=== PATIENT | male | born 1955 | race Caucasian/White ===

== ENCOUNTER 2023-11-15 14:26 | Inpatient (IN) ==
--- OUTSIDE RECORDS SUMMARY | 2023-11-15 14:32 | External Medical Summary | Continuity of Care Document ---
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 Fatigue (LNV24-ZB R53.83, Discharge, Medical). Constipation (JYX60-FQ K59.00, Discharge, Medical). 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 Arm numbness (FMM92-JF R20.0, Discharge, Medical). Plan: Arm Numbness (not at goal) Bilaterally symptoms question this is related to a cervical radiculopathy Check cervical spine x-ray Consider return to sports medicine for workup He has some travel upcoming, so would not be until mid-to-late October that he would be able to see Fatigue (not at goal) Difficult to tell if this is pathologic or just physiologic and age-related About 4 years ago, we had checked his testosterone and it was low normal range Recheck testosterone Check CBC Check TSH Constipation (not at goal) No culprit medicines except for perhaps beta-jeff Discussed gradual introduction of fiber Check TSH Coronary artery disease Cardiomyopathy Hyperlipidemia (at goal) At goal Continue lovastatin and co-Q10 On Entresto, preserved renal function and serum potassium noted Hypertension (at goal) At goal Relative bradycardia, but no evidence of orthostatic symptoms . Orders [facility] Radiology: XR Spine Cervical 2 or 3 Views (Order): *Est. 10/02/2023, Routine, bilateral arm numbness, Arm numbness, Exam to be performed outside organization?, Order for future visit, [facility]. [facility] Laboratory: TSH Request (Order): Routine, 10/02/2023 10:47 EDT, Requested Timeframe First Available CBC w Platelets and Diff Request (Order): Routine, 10/02/2023 10:47 EDT, Requested Timeframe First Available Total Testosterone, LC-MS/MS Request (Order): Routine, 10/02/2023 10:47 EDT, Requested Timeframe First Available. [facility] Patient Care Ambulatory: Follow Up Appointment Ambulatory (Order): In 6 Months, Appointment Type Patient Preference, 40, 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 Immunizations Given and Recorded Vaccine Date Status Refusal Reason pneumococcal 20-valent conjugate vaccine 03/27/22 Given zoster vaccine, inactivated 03/27/22 Given SARS-CoV-2 mRNA-1273 (6y+ bivalent) 1 02/10/22 Rec orded SARS-CoV-2 mRNA (tozinameran 5y-11y) 2 07/18/21 Re corded influenza virus vaccine, inactivated 01/23/21 Give n influenza virus vaccine, inactivated 12/21/19 Give n influenza virus vaccine, inactivated 01/06/19 Give n influenza virus vaccine, inactivated 03/19/16 Give n influenza virus vaccine, inactivated 03/22/15 Give n influenza virus vaccine, inactivated 01/30/14 Give n influenza virus vaccine, inactivated 02/02/13 Give n SARS-CoV-2 (COVID-19) mRNA BNT-162b2 vax 3 05/28/20 Recorded SARS-CoV-2 (COVID-19) mRNA BNT-162b2 vax 4 05/07/20 Recorded SARS-CoV-2 (COVID-19) mRNA-1273 vaccine 5 05/25/20 Recorded pneumococcal 23-valent vaccine 03/18/18 Given zoster vaccine live 09/19/15 Given tetanus/diphtheria/pertuss, acel (Tdap) 10/20/11 G iven 1Result Comment: 2022-03-27: Historical information-source unspecified 2Result Comment: [facility] 3Result Comment: 2021-01-23: Historical information-source unspecified 4Result Comment: 2021-01-23: Historical information-source unspecified 5Result Comment: 2021-01-23: Historical information-source unspecified Medications carvedilol 6.25 mg oral tablet Start: 08/18/23 9:12:00 AM EDT, 1 tab, PO, bid, Disp# 180 tab, Refills: 3, Pharmacy: [id number] Start Date: 08/18/23 Status: Ordered Entresto 49 mg-51 mg oral tablet Start: 12/02/22 3:45:00 PM EDT, 1 tab, PO, bid, Disp# 180 tab, Refills: 3, Pharmacy: [id number] Start Date: 12/02/22 Status: Ordered multivitamin Start: 10/01/22 12:45:00 PM EDT, 1 tab, PO, Daily Start Date: 10/01/22 Status: Ordered pravastatin 20 mg oral tablet Start: 05/08/23 10:54:00 AM EST, 1 tab, PO, qhs, Disp# 90 tab, Refills: 3, Pharmacy: [id number] Start Date: 05/08/23 Status: Ordered traMADol 50 mg oral tablet Start: 07/27/23 3:07:00 PM EDT, See Instructions, Disp# 45 tab, Refills: 3, TAKE 1 TABLET BY MOUTH EVERY 8 HOURS NEEDED FOR PAIN, Pharmacy: [id number] Start Date: 07/27/23 Status: Ordered Tylenol Arthritis Caplet Start: 05/05/19 9:50:00 AM EST, 1,300 mg =, PO, q8h, PRN: pain Start Date: 05/05/19 Status: Ordered Vitamin D3 Start: 08/20/16 9:40:00 AM EDT, 2,000 Int_Unit =, PO, Daily Start Date: 08/20/16 Status: Ordered Mental Status 10/02/23 Barriers to Learning one year None evide nt Mandatory Health Literacy Documentation Yes Health Literacy Communication Barriers N ever Primary Language Bahraini Problem List Condition Confirmation Course Effective Dates Status H ealth Status Informant Cardiomyopathy Confirmed Active Chronic low back pain Confirmed Active 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 Confirmed Active Right foot drop Confirmed Active History of compression fracture of spine Confirmed Active Right hand pain Confirmed Active Status post insertion of drug-eluting stent into left anterior descending artery for coronary artery disease Confirmed Active History of total right hip arthroplasty Confirmed Active Hypertension Confirmed Active IMPOTENCE OF ORGANIC ORIGIN Confirmed Active Muscle weakness of right arm Confirmed Active Right arm weakness Confirmed Active Neurogenic amyotrophy Confirmed Active Medicare annual wellness visit, subsequent Confirmed Active Colon polyp, hyperplastic Confirmed Active Emphysema lung Confirmed Active Need for Tdap vaccination Confirmed Active Need for pneumococcal vaccine Confirmed Active Need for shingles vaccine Confirmed Active Foraminal stenosis of lumbar region Confirmed Active Systolic CHF Confirmed Active History of prior cigarette smoking Confirmed Active Right leg weakness Confirmed Active Weight disorder Confirmed Active Diagnosis Diagnosis Type Effective Dates Health Status Clinical Service Informant Body mass index [BMI] 29.0-29.9, adult Discharge Diagnosis 10/02/23 Non-Specified Arm numbness Discharge Diagnosis 10/02/23 Non-Specified Right hand pain Discharge Diagnosis 10/02/23 Non-Specified 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 Discharge Diagnosis 10/02/23 Non-Specified Fatigue Discharge Diagnosis 10/02/23 Non-Specified Constipation Discharge Diagnosis 10/02/23 Non-Specified Procedures Procedure Date Related Diagnosis Body Site Status CT of lungs 1 04/07/22 Completed Chest X-ray 2 04/18/19 Completed X-ray of both knees 3 02/07/19 Com pleted MRI of right shoulder 4 11/25/18 C ompleted Shoulder X-ray 5 11/01/18 Complete d Lumbar spinal fusion 03/16/18 Comp leted MRI of lumbar spine 6 11/06/17 Com pleted Cardiac catheterization 7 08/22/17 Completed Chest X-ray/KUB 8 08/14/17 Complet ed Colonoscopy 9 03/15/14 Completed Cardiac catheter & angioplasty 10 Completed deviated septum repain Co mpleted right hip replacement Com pleted 1Impression: 1. Mild emphysema without acute intrathoracic abnormality 2. Low suspicion pulmonary nodules 2No active disease in the chest. 3Negative study 4IMPRESSION: Very subtle nonspecific spraspinatus muscle edema Mild degenreative chnge No evidence of ratator tear. Normal bicipital tendon. 5IMPRESSION: No acute fracture. Mild to moderat right shoulder osteoarthritis 6Chronic pars defects at L5 with 9mm anterolisthesis L5 on S1. These findings in addition to ligamentum flavum thickening, advanced facet arthrosis and small posterior disc bulge causes mild central canal and severe bilateral foraminal stenosis. Mild central canal stenosis at L2-L3 and L3-L4. Advanced multilevel facet arthropathy with multilevel foraminal stenosis as above. Remote compression deformity of L1 vertebral body. No acute fracture or focal bone marrow edema. 7IMPRESSION: 1. Mildly elevated right heart pressures, mild aortic hypoxemia. 2. Known left ventricular systolic dysfunction. No ventriculogram performed. 3. Significant stenosis of the mid left anterior descending artery. Successful angioplasty, drug-eluting stent placement. 81. Nonobstructive bowel gas pattern without pneumoperitoneum. 2. No definite evidence of constipation. 3. No acute process of the chest. 9Repeat colonoscopy in 10 years Impression: Diverticulosis in the sigmoid colon One 7mm polyp at the recto-sigmoid colon resected and retrieved Final pathologic diagnosis: Colon, rectosigmoid, polypectomy: Hyperplastic polyp 101. Mildly elevated right heart pressures, mild aortic hypoxemia. 2. Known left ventricular systolic dysfunction. No ventriculogram performed. 3. Significant stenosis of the mid left anterior descending artery. Successful angioplasty, drug-eluting stent placement. Vital Signs Most recent to oldest [Reference Range]: 1 Height 179.5 cm (10/02/23 10:04 AM) Patient Weight 95.3 kg (10/02/23 10:04 AM) Body Mass Index 29.58 kg/m2 (10/02/23 10:04 AM) Heart Rate 73 bpm (10/02/23 10:04 AM) Respiratory Rate 18 br/min (10/02/23 10:04 AM) Blood Pressure 138/80mmHg (10/02/23 10:04 AM) Cuff Pulse Pressure 58 mmHg (10/02/23 10:04 AM) Social History Social History Type Response Tobacco Former smoker, Cigar ettes, 1 per day. 40 year(s). Started age 22 Years. Stopped age 62 Years. Smoking Status Former Smoker, quit > 1 yr Sex Sex Representation Male (finding) Outpatient Note * DO Serrano Franklin J: PERFORM, MODIFY, MODIFY, SIGN, VERIFY Event Display: .Outpt Note Authored Date: Patient: PETER TORREZ Age: 67 years Sex: Male : 1955 Associated Diagnoses: None Author: DO Serrano Franklin J Visit Information Visit type: Scheduled follow-up. Chief Complaint 10/02/2023 10:00 EDT 6 month f/u. Almost constant numbness in arms just when going to bed when sleeping on sides- waking from sleep because of it. Wondering if any meds could be causing constipation. Increased sweating. Heart palpitations when it was hot out. History of Present Illness Since I saw him last, broke her hip in April. Most bothersome thing for him (and limiting sleep) is arm numbness/pins and needles. Has been ongoing for a while, but is now every night. Sometimes it is lower arm, sometimes entire arm. In looking in the records, actually looks like it dates back to 2018 at which time he saw Dr. Castillo in sports medicine, otherwise that time the symptom was more in the right arm. Abnormalities were found in the right shoulder (MRI) and this was thought to be the etiology of his discomfort; thereafter, the pandemic started and he really had no other follow-up. More recently -maybe last 3 to 6 months -he has noted bilateral symptoms, and it has been leading to difficulty with sleep. Going to the gym every other day - mix of weights and aerobic. No chest pain or dyspnea. He has some questions about increased sweating. Discussed that this is probably age and temperaturerelated. He was on no medications (other than the beta- jfef) that would increase his sweating. He also has some questions about constipation. He notes some constipation. He wonders if it could be related to many of his medications. Review of Systems Constitutional: Fatigue, No weakness. Eye: Negative. Respiratory: Negative. Cardiovascular: Negative. Gastrointestinal: No nausea, No vomiting, No diarrhea. Musculoskeletal: Negative except as documented in history of present illness. Neurologic: Alert and oriented X4. Health Status Allergies: Allergic Reactions (Selected) NKA. Current medications: (Selected) Prescriptions Prescribed CoQ10 100 mg oral capsule: 1 cap, PO, bid, 60 cap, 11 Refill(s) Entresto 49 mg-51 mg oral tablet: 1 tab, PO, bid, 180 tab, 3 Refill(s) aspirin 81 mg oral delayed release tablet: 1 tab, PO, Daily, 90 tab, 3 Refill(s) carvedilol 6.25 mg oral tablet: 1 tab, PO, bid, 180 tab, 3 Refill(s) pravastatin 20 mg oral tablet: 1 tab, PO, qhs, 90 tab, 3 Refill(s) traMADol 50 mg oral tablet: See Instructions, TAKE 1 TABLET BY MOUTH EVERY 8 HOURS NEEDED FOR PAIN, 45 tab, 3 Refill(s) Documented Medications Documented Tylenol Arthritis Caplet: 1,300 mg, PO, q8h, PRN: pain Vitamin D3: 2,000 Int_Unit, PO, Daily multivitamin: 1 tab, PO, Daily. Problem list: Medical (Selected) History of prior cigarette smoking / SNOMED CT 899794033 / Confirmed Need for Tdap vaccination / SNOMED CT 3516187604 / Confirmed Medicare annual wellness visit, subsequent / SNOMED CT 886445809 / Confirmed Right hand pain / SNOMED CT 454692584 / Confirmed Right arm weakness / SNOMED CT 2460263293 / Confirmed Need for shingles vaccine / SNOMED CT 6177780063 / Confirmed Need for pneumococcal vaccine / SNOMED CT 5653213203 / Confirmed Chronic low back pain / SNOMED CT 494847637 / Confirmed History of compression fracture of spine / SNOMED CT 4857383454 / Confirmed Emphysema lung / SNOMED CT 915053623 / Confirmed Hypertension / SNOMED CT 7817227923 / Confirmed Cardiomyopathy / SNOMED CT 450916676 / Confirmed Status post insertion of drug-eluting stent into left anterior descending artery for coronary artery disease / SNOMED CT 5588976574 / Confirmed IMPOTENCE OF ORGANIC ORIGIN / ICD-9-CM 607.84 / Confirmed Colon polyp, hyperplastic / SNOMED CT 166202506 / Confirmed Right foot drop / SNOMED CT 46146126 / Confirmed Foraminal stenosis of lumbar region / SNOMED CT 7142588929 / Confirmed Neurogenic amyotrophy / SNOMED CT 27824389 / Confirmed Muscle weakness of right arm / SNOMED CT 5570274908 / Confirmed 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 / SNOMED CT 5230713691 / Confirmed Systolic CHF / SNOMED CT 8992697743 / Confirmed Right leg weakness / SNOMED CT 240774939903500 / Confirmed History of total right hip arthroplasty / SNOMED CT 3058202637 / Confirmed Weight disorder / SNOMED CT 097431666 / Confirmed All Problems (Selected) History of prior cigarette smoking / SNOMED CT 396763240 / Confirmed Need for Tdap vaccination / SNOMED CT 1279249458 / Confirmed Medicare annual wellness visit, subsequent / SNOMED CT 597341655 / Confirmed Right hand pain / SNOMED CT 553526537 / Confirmed Right arm weakness / SNOMED CT 5654489720 / Confirmed Need for shingles vaccine / SNOMED CT 0594667384 / Confirmed Need for pneumococcal vaccine / SNOMED CT 3206937547 / Confirmed Chronic low back pain / SNOMED CT 500816261 / Confirmed History of compression fracture of spine / SNOMED CT 4174596057 / Confirmed Emphysema lung / SNOMED CT 423738009 / Confirmed Hypertension / SNOMED CT 7628891836 / Confirmed Cardiomyopathy / SNOMED CT 767710354 / Confirmed Status post insertion of drug-eluting stent into left anterior descending artery for coronary artery disease / SNOMED CT 0150653704 / Confirmed IMPOTENCE OF ORGANIC ORIGIN / ICD-9-CM 607.84 / Confirmed Colon polyp, hyperplastic / SNOMED CT 296811045 / Confirmed Right foot drop / SNOMED CT 67520050 / Confirmed Foraminal stenosis of lumbar region / SNOMED CT 9313932713 / Confirmed Neurogenic amyotrophy / SNOMED CT 97490932 / Confirmed Muscle weakness of right arm / SNOMED CT 5998862619 / Confirmed 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 Histories Family History: Hypertension Mother () Cardiovascular disease Father () Arthritis Father () Stroke Brother () Heart attack Father () Type II diabetes mellitus Brother () Cancer Mother () Father () Heart murmur Father () Diabetes Mother () Cardiovascular disease Father () High Blood Pressure Mother () . 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 - 08/18/2011 15:48 - DO Serrano Franklin J Home/Environment 03/27/2022 Lives with: Spouse Living situation: Home/Independent Feels unsafe at home: No Family/Friends available to help: Yes Comment: has psoriatic arthritis - 03/27/2022 08:44 - MD Mg, Balbir Singh Substance Abuse 08/18/2011 Risk Assessment: Denies Substance Abuse Tobacco 08/18/2011 Risk Assessment: High Risk 11/02/2016 Use: Former smoker Type: Cigarettes Total pack years: 40 Previous treatment: Medications, Nicotine replacement Ready to change: Yes 03/27/2022 Use: Former smoker Type: Cigarettes Tobacco use per day: 1 Number of years: 40 Started at age: 22 Years Stopped at age: 62 Years . Physical Examination Vital Signs 10/02/2023 10:04 EDT Heart Rate 73 bpm Respiratory Rate 18 br/min Systolic Blood Pressure 138 mmHg Diastolic Blood Pressure 80 mmHg Cuff Pulse Pressure 58 mmHg SpO2 95 % Measurements from flowsheet : Measurements 10/02/2023 10:05 EDT Osteoporosis Screening Tool .10/02/2023 10:04 EDT Height 179.5 cm Height Method Standing Patient Weight 95.3 kg Weight 95.300 kg Weight Method Standing Scale Body Mass Index 29.58 kg/m2 Body Surface Area 2.18 m2 [place] Body Weight 74.5 kg Height/Weight Refused Height/Weight Taken General: Alert and oriented. Eye: Pupils are equal, round and reactive to light, Extraocular movements are intact, Normal conjunctiva. HENT: Normocephalic, Normal hearing. Neck: Supple, Non-tender. Respiratory: Lungs are clear to auscultation, Respirations are non-labored. Cardiovascular: Normal rate, Regular rhythm. Musculoskeletal Normal range of motion. Integumentary: Warm, Dry, [place]. Neurologic: Alert, Oriented, Normal sensory. Psychiatric: Cooperative, Appropriate mood & affect. Health Maintenance Health Maintenance Pending (in the next year) OverDue Medicare Annual Wellness Visit due 03/28/23 and every 1 year Due Adult Influenza Vaccine due 09/06/23 and every 1 year Adult COVID-19 Vaccination due 10/02/23 Unknown Frequency Adult Social Determinants of Health Screening due 10/02/23 Unknown Frequency Adult Tdap/Td Vaccine due 10/02/23 Unknown Frequency Hepatitis C Screening due 10/02/23 One-time only Shingles Vaccine due 10/02/23 One-time only Due In Future Colorectal Cancer Screening not due until 03/12/24 and every 10 year Satisfied (in the past 1 year) Satisfied Lipid Screening on 07/16/23. Satisfied by Contributor_system, [employer] Review / Management Results review: Lab results 07/16/2023 11:52 EDT Na 142 mmol/L K 4.4 mmol/L Cl- 108 mmol/L HI HCO3 28 mmol/L Anion Gap 6 mmol/L BUN 17 mg/dL Cret 0.88 mg/dL eGFR CKD-EPI >90 mL/min/1.73 m2 Glu 81 mg/dL Ca 9.0 mg/dL ALT 22 unit/L T Bili 0.6 mg/dL Alk Phos 47 unit/L AST 24 unit/L Alb 4.0 g/dL Prot 7.0 g/dL Chol 145 mg/dL LDL Chol, Calculated 59 mg/dL HDL 47 mg/dL Non-HDL 98 mg/dL Chol/HDL 3 TG 196 mg/dL . Impression and Plan Diagnosis Right hand pain (CMO29-LJ M79.641, Discharge, Medical). Fatigue (GKT87-FI R53.83, Discharge, Medical). Constipation (SWQ34-KR K59.00, Discharge, Medical). 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 Arm numbness (KRR67-IB R20.0, Discharge, Medical). Plan: Arm Numbness (not at goal) Bilaterally symptoms question this is related to a cervical radiculopathy Check cervical spine x-ray Consider return to sports medicine for workup He has some travel upcoming, so would not be until mid-to-late October that he would be able to see Fatigue (not at goal) Difficult to tell if this is pathologic or just physiologic and age-related About 4 years ago, we had checked his testosterone and it was low normal range Recheck testosterone Check CBC Check TSH Constipation (not at goal) No culprit medicines except for perhaps beta-jeff Discussed gradual introduction of fiber Check TSH Coronary artery disease Cardiomyopathy Hyperlipidemia (at goal) At goal Continue lovastatin and co-Q10 On Entresto, preserved renal function and serum potassium noted Hypertension (at goal) At goal Relative bradycardia, but no evidence of orthostatic symptoms . Orders [facility] Radiology: XR Spine Cervical 2 or 3 Views (Order): *Est. 10/02/2023, Routine, bilateral arm numbness, Arm numbness, Exam to be performed outside organization?, Order for future visit, [facility]. [facility] Laboratory: TSH Request (Order): Routine, 10/02/2023 10:47 EDT, Requested Timeframe First Available CBC w Platelets and Diff Request (Order): Routine, 10/02/2023 10:47 EDT, Requested Timeframe First Available Total Testosterone, LC-MS/MS Request (Order): Routine, 10/02/2023 10:47 EDT, Requested Timeframe First Available. [facility] Patient Care Ambulatory: Follow Up Appointment Ambulatory (Order): In 6 Months, Appointment Type Patient Preference, 40, Follow up With DO Serrano Franklin J. 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 Professional Services Face to Face: 42 minutes Documentation: 10 mins Electronic Signature on File Electronically Reviewed/Signed by: Trevor Serrano DO Author Signature Dt/Tm:10/02/2023 02:52 PM Department of Family Medicine [facility] Patient Care team information Care Team Personnel Name: MD Holliday Jonathan D Position: Physician - Family Med Member Role: Lifetime Relationship Address: [address] [place] [address] Name: DO Serrano Franklin J Position: Physician - Family Med Member Role: Primary Care Provider Address: [address] [place] [address] Care Team Related Persons Name: MOOSE TORREZ Name: MOOSE TORREZ"
[2023-11-15] MEDS: ASPIRIN CHEW 324 MG PO STA (15:02)
[2023-11-15 15:03] LABS: Base Excess VBG -1.8 mEq/L; HCO3 VBG 23 mmol/L; Oxygen Saturation VBG 87.6 %; PCO2 VBG 39 mmHg (38-50); PO2 VBG 55 mmHg; pH VBG 7.38 (7.36-7.41)
[2023-11-15 15:10] LABS: Basophils # (auto) 0.03 K/uL (0.00-0.20); Basophils % (auto) 0.4 %; Eosinophils # (auto) 0.09 K/uL (0.00-0.50); Eosinophils % (auto) 1.3 %; Hematocrit (blood only) 37.7 % (42.0-52.0); Immature Granulocytes # (auto) 0.01 K/uL (0.01-0.20); Immature Granulocytes % (auto) 0.1 %; Lymphocytes # (auto) 1.35 K/uL (1.20-3.40); Lymphocytes % (auto) 19.9 %; Mean Corpuscular Hemoglobin 32.3 pg (25.0-34.0); Mean Corpuscular Hgb Conc 34.5 g/dL (32.0-36.0); Mean Corpuscular Volume 93.5 fL (80.0-100.0); Mean Platelet Volume 10.5 fL (9.4-12.4); Monocytes # (auto) 0.49 K/uL (0.11-0.59); Monocytes % (auto) 7.2 %; Neutrophils % (auto) 71.1 %; Platelet Count 128 K/uL (130-400); RDW Coefficient of Variation 12.8 % (11.5-14.5); Red Blood Count 4.03 M/uL (4.70-6.10); White Blood Count 6.77 K/ul (4.8-10.8)
--- NOTE | 2023-11-15 15:26 | XRay Report ---
XR chest 2V PA/lateral HISTORY: 68 years-old Male Chest pain, nonspecific COMPARISON: Chest CT 04/08/2023 TECHNIQUE: PA and lateral views of the chest FINDINGS: Cardiac silhouette is mildly enlarged. No pneumothorax, pleural effusion or airspace consolidation. M ild hyperinflation with diaphragmatic flattening. The bones appear intact. IMPRESSION: No acute process. ACT 112: Negative or not required by law. The above report was generated using voice recognition software. It may contain grammatical, syntax o r spelling errors. Electronically signed by: Satnam Perry M.D. 11/15/2023 3:24 PM
[2023-11-15 15:29] LABS: BUN Creatinine Ratio 22.3 (10-20); Calcium 8.9 mg/dl (8.6-10.3); Est GFR (African American) 94.8 ml/min; Est GFR (Non-African American) 81.8 ml/min; Potassium 4.2 mmol/L (3.5-5.1)
[2023-11-15 15:37] LABS: Troponin I High Sensitivity 30.9 pg/ml (0-20)
[2023-11-15 15:38] LABS: INR 1.1 (0.9-1.1); Partial Thromboplastin Time 28 Seconds (21-31); Prothrombin Time 11.5 Seconds (9.0-12.0)
[2023-11-15 15:40] LABS: Influenza A virus by PCR Negative (Neg); Influenza B virus by PCR Negative (Neg); RSV by PCR Negative (Neg); SARS CoV2 RNA(COVID-19) Ceph NEGATIVE (Negative)
[2023-11-15 15:49] LABS: D Dimer 1180 ug/L FEU (0-500)
[2023-11-15] MEDS: OPTIRAY 320 125ml IV ONE (16:03)
--- NOTE | 2023-11-15 16:32 | CT Scan Report ---
CT angio chest PE protocol CT DOSE: 867.87 mGy.cm HISTORY: 68 years-old Male with ro pe. Acute shortness of breath TECHNIQUE: Multiple CTA images of the chest were obtained after the intravenous administration of 118 ml Optiray. Coronal and sagittal MIPS were obtained from the axial data set and were submitted for review. All measurements were obtained according to NASCET criteria. A dose lowering technique was u tilized adhering to the principles of ALARA. COMPARISON: Chest CT 04/08/2023 FINDINGS: CTA: Mild cardiomegaly. Trace pericardial effusion. Moderate to extensive coronary artery calcifications. No thoracic aortic aneurysm. No central pulmonary emboli. Limited study secondary to contrast bolus t iming. CT CHEST: Unremarkable thyroid. Node pathologically enlarged lymph nodes identified. Trace pleural effusions. M ild pulmonary emphysema suggested. No pneumothorax. Intralobular septal thickening with mild bibasila r atelectasis. There are a few scattered low suspicion solid pulmonary nodules redemonstrated measuri ng up to 4 mm which are unchanged from prior. No acute upper abdominal abnormality. Thickening of the adrenal glands suggestive of hyperplasia. Pro bable left adrenal adenoma. Unremarkable soft tissues. And chronic thoracolumbar compression deformit ies appear unchanged. No acute fracture identified. IMPRESSION: 1. Cardiomegaly with mild interstitial pulmonary edema and trace pleural effusions. 2. Dependent subsegmental bibasilar atelectasis. 3. Mild pulmonary emphysema with unchanged low suspicion solid pulmonary nodules measuring up to 4 mm . ACT 112: Negative or not required by law. The above report was generated using voice recognition software. It may contain grammatical, syntax o r spelling errors. Electronically signed by: Satnam Perry M.D. 11/15/2023 4:30 PM
[2023-11-15] MEDS: FUROSEMIDE 40 MG/4 ML VIAL IV ONE (17:00)
--- NOTE | 2023-11-15 17:12 | History & Physical Report ---
Date of Service November 15, 2023 Assessment & Plan (1) Acute systolic CHF (congestive heart failure): Plan: Patient reports EF 40-45% in Mar 2023, will repeat TTE here to assess for new wall motion abnormalities and valvular disease Continue carvedilol and Entresto Add Furosemide 40mg IV BID Strict I&Os Daily standing weights TTE (2) CAD (coronary artery disease), [place] coronary artery: Plan: s/p JOVITA to mid LAD 2017 Continue ASA, carvedilol, Entresto, pravastatin Plan VTE Prophylaxis - Lovenox 40 mg SQ daily Diet -heart healthy, low Na, fluid restricted Disposition - admit to med/tele Admission and Anticipated Discharge Date Admission Date: November 15, 2023 History of Present Illness Chief Complaint: Chest pain Shortness of breath Primary Care Provider: Trevor Serrano DO Benito Valentin is a 68-year-old male who presents to the ER with chest pain and shortness of breath. He reports feeling an irregular and more noticeable fast pulse last week. He felt it might be due to caffeine so tried to reduce this but his exercise tolerance remained good and he was still going ot the gym without shortness of breath or chest pain. Around 4:30am this morning he had sudden onset shortness of breath with significant orthopnea and paroxysmal nocturnal dyspnea that woke him up. No chest pain, presyncope, claudication, nausea, vomiting or diaphoresis. He has not noticed any worsening leg swelling and is unsure if his weight has increased. He reports eating pizza with sausage yesterday and hoagies with deli meat the day before for a school reunion He has a significant history of CHF starting in 2018 with EF 15-20% at that time and subsequent catheterization with stent placed to mid LAD. He follows with [facility] cardiology with last echocardiogram in March (not available on admission but he reports LVEF 40-45%. He takes aspirin only Thursday, Fridays due to bruising. He took all his normal morning medications. Allergies Allergy/AdvReac Type Severity Reaction Status Date / Time No Known Allergies Allergy Mild Verified 11/15/23 16:21 Home Medications Medication Instructions Recorded Confirmed Type aspirin 81 mg tablet,delayed 81 mg PO QAM 05/26/19 11/15/23 History release sacubitril 49 mg-valsartan 51 mg 1 tab PO BID 05/26/19 11/15/23 History tablet (Entresto) calcium carbonate 600 mg-vitamin 1 tab PO DAILY 11/15/23 11/15/23 History D3 10 mcg (400 unit) tablet (Calcium 600 + D(3)) carvedilol 6.25 mg tablet 6.25 mg PO BID 11/15/23 11/15/23 History coQ10 (ubiquinol) 100 mg capsule 100 mg PO BID 11/15/23 11/15/23 History multivitamin 1 tab PO QAM 11/15/23 11/15/23 History pravastatin 20 mg tablet 20 mg PO HS 11/15/23 11/15/23 History tramadol 50 mg tablet 50 mg PO Q8H PRN Pain 11/15/23 11/15/23 History Past Med/Surg History Problem List CAD (coronary artery disease), [place] coronary artery s/p JOVITA to mid LAD. HTN (hypertension) Acute combined systolic (congestive) and diastolic (congestive) heart failure Acute systolic CHF (congestive heart failure) Medical History Cardiomyopathy EF 15-20% on 2018 admission for CHF. Kidney stones Hx of congestive heart failure Acute combined systolic/diastolic, 2018. Irregular heart beat "EXTRA BEAT" FOLLOWS WITH DR. KENDALL Hypertension Surgical History History of total hip arthroplasty RT Fusion of spine LUMBAR FUSION History of colonoscopy History of tooth extraction History of nasal septoplasty History of heart artery stent 1 JOVITA STENT INSERTED, 08/2017 AT [facility] Family History Mother Family history of diabetes mellitus Grandfather (Maternal) Family hx of colon cancer Social History Smoking Status: Former smoker Tobacco Type: Cigarettes Smoking End Date: 3-4 years ago; Second Hand Exposure: Yes; Do You Dip or Chew Tobacco: No; Hx Alcohol Use: Yes Alcohol type: beer Hx Substance Use: No Preferred Language: Slovak Communication Ability: Effective 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 Beliefs That Will Affect Care: None Current Living Situation: Spouse Current Living Situation Comment: with Other Information That Helps Us Care for You: No Feels Safe at Home: Yes Safety Concerns: Feels Safe At This Time Assistive Devices: Glasses Review of Systems Review of Systems: All systems reviewed & are unremarkable except as noted in HPI & below Physical Exam Constitutional: WD/WN, vitals as above Eyes: + anicteric sclerae; normal pupil size ENMT: external ear and nose normal, oropharynx normal Respiratory: normal respiratory effort; no respiratory distress Auscultation: + crackles (to mid zone of back); breath sounds present, no diminished lung sounds, no rales, no rhonchi and no wheezes Cardiovascular: Rate/Rhythm: regular rate and + irregularly irregular Heart Sounds: no murmur Vessels: + JVD Extremities: normal capillary refill; no calf tenderness and no pedal edema (1+ b/l equal to knees) Gastrointestinal (Abdomen): normal bowel sounds, soft, nontender, no hepatosplenomegaly Musculoskeletal: no cyanosis or clubbing, extremities motor strength 5/5 Skin: no rashes, warm and dry Neurologic: moves all extremities and awake; not confused Psychiatric: A+Ox3, euthymic affect Results & Data Results & Data Vital Signs (Past 12 Hours) Vital Signs Temp Pulse Pulse Resp BP BP Pulse Ox 11/15/23 15:40 73 20 153/97 H 98 11/15/23 15:17 73 11/15/23 14:50 79 18 98 11/15/23 14:37 36.5 C 18 153/85 H 95 O2 Del Method 11/15/23 15:40 Room Air 11/15/23 15:17 11/15/23 14:50 Room Air 11/15/23 14:37 Room Air Laboratory Results Abnormal lab results 11/15/23 Range/Units 14:51 RBC 4.03 L (4.70-6.10) M/uL Hgb 13.0 L (14.0-18.0) g/dl Hct 37.7 L (42.0-52.0) % Plt Count 128 L (130-400) K/uL D-Dimer 1180 H* (0-500) ug/L FEU Chloride 110 H (98-107) mmol/L BUN/Creatinine Ratio 22.3 H (10-20) Glucose 116 H (70-99(Fasting)) mg/dl Troponin I High Sens 30.9 H (0-20) pg/ml B-Natriuretic Peptide 1181 H (0-100) pg/ml Diagnostic Findings XR chest 2V PA/lateral HISTORY: 68 years-old Male Chest pain, nonspecific COMPARISON: Chest CT 04/08/2023 TECHNIQUE: PA and lateral views of the chest FINDINGS: Cardiac silhouette is mildly enlarged. No pneumothorax, pleural effusion or airspace consolidation. Mild hyperinflation with diaphragmatic flattening. The bones appear intact. IMPRESSION: No acute process. CT angio chest PE protocol CT DOSE: 867.87 mGy.cm HISTORY: 68 years-old Male with ro pe. Acute shortness of breath TECHNIQUE: Multiple CTA images of the chest were obtained after the intravenous administration of 118 ml Optiray. Coronal and sagittal MIPS were obtained from the axial data set and were submitted for review. All measurements were obtained according to NASCET criteria. A dose lowering technique was utilized adhering to the principles of ALARA. COMPARISON: Chest CT 04/08/2023 FINDINGS: CTA: Mild cardiomegaly. Trace pericardial effusion. Moderate to extensive coronary artery calcifications. No thoracic aortic aneurysm. No central pulmonary emboli. Limited study secondary to contrast bolus timing. CT CHEST: Unremarkable thyroid. Node pathologically enlarged lymph nodes identified. Trace pleural effusions. Mild pulmonary emphysema suggested. No pneumothorax. Intralobular septal thickening with mild bibasilar atelectasis. There are a few scattered low suspicion solid pulmonary nodules redemonstrated measuring up to 4 mm which are unchanged from prior. No acute upper abdominal abnormality. Thickening of the adrenal glands suggestive of hyperplasia. Probable left adrenal adenoma. Unremarkable soft tissues. And chronic thoracolumbar compression deformities appear unchanged. No acute fracture identified. IMPRESSION: 1. Cardiomegaly with mild interstitial pulmonary edema and trace pleural effusions. 2. Dependent subsegmental bibasilar atelectasis. 3. Mild pulmonary emphysema with unchanged low suspicion solid pulmonary nodules measuring up to 4 mm. Medications Administered ER medications given: Aspirin 324 mg p.o. Furosemide 40 mg IV ECG Rate (beats per minute): 81 Rhythm: normal sinus Findings: + other (T wave flattening inferiorly), + 1st degree AV block and + ST depression (Mild <1mm in V5-6) Comparison ECG Date: from (August 24, 2017) Change: the following changes noted (T wave flattening replaced TWI in inferior leads, ST depressions not new, very frequent/consecutive PVCs new) Code Status & VTE Plan Code Status Full VTE Prophylaxis Plan VTE Prophylaxis will be ordered: Yes PG Care Time/CCT Total # of Minutes Spent Total Time Spent with Patient: Total time spent is greater than 50% in coordination of care (as documented) at patient's floor/unit and/or counseling patient: Coding Level of Care Code 56615 INT INP/OBS CARE 2/55MIN Diagnoses Acute systolic CHF (congestive heart failure) I50.21 CAD (coronary artery disease), [place] coronary artery I25.10
--- NOTE | 2023-11-15 17:47 | Emergency Department Note ---
History of Present Illness General Chief Complaint: Cardiac Assessment Stated Complaint: SOB Time Seen by Provider: 11/15/23 14:45 History of Present Illness Provider Complaint: shortness of breath Onset (ago): day(s) (1) Severity: moderate Consistency/Duration: + progressively worsening Relieved By: + upright position Exacerbated By: + lying flat, + exertion and + coughing Context: + recent travel Known history of: congestive heart failure Associated symptoms: + chest pain, + cough, + orthopnea, + palpitations and + chest congestion; no fever, no wheezing, no sputum production, no lower extremity pain, no nausea/vomiting or no abdominal pain Related Data Home oxygen amount: none Home Medications Medication Instructions Recorded Confirmed Type aspirin 81 mg tablet,delayed 81 mg PO QAM 05/26/19 11/15/23 History release sacubitril 49 mg-valsartan 51 mg 1 tab PO BID 05/26/19 11/15/23 History tablet (Entresto) calcium carbonate 600 mg-vitamin 1 tab PO DAILY 11/15/23 11/15/23 History D3 10 mcg (400 unit) tablet (Calcium 600 + D(3)) carvedilol 6.25 mg tablet 6.25 mg PO BID 11/15/23 11/15/23 History coQ10 (ubiquinol) 100 mg capsule 100 mg PO BID 11/15/23 11/15/23 History multivitamin 1 tab PO QAM 11/15/23 11/15/23 History pravastatin 20 mg tablet 20 mg PO HS 11/15/23 11/15/23 History tramadol 50 mg tablet 50 mg PO Q8H PRN Pain 11/15/23 11/15/23 History Allergies Allergy/AdvReac Type Severity Reaction Status Date / Time No Known Allergies Allergy Mild Verified 11/15/23 16:21 Past Med/Surg History Problem List CAD (coronary artery disease), [place] coronary artery s/p JOVITA to mid LAD. HTN (hypertension) Acute combined systolic (congestive) and diastolic (congestive) heart failure Acute systolic CHF (congestive heart failure) Medical History Cardiomyopathy EF 15-20% on 2018 admission for CHF. Kidney stones Hx of congestive heart failure Acute combined systolic/diastolic, 2018. Irregular heart beat "EXTRA BEAT" FOLLOWS WITH DR. KENDALL Hypertension Surgical History History of total hip arthroplasty RT Fusion of spine LUMBAR FUSION History of colonoscopy History of tooth extraction History of nasal septoplasty History of heart artery stent 1 JOVITA STENT INSERTED, 08/2017 AT [facility] Family History Mother Family history of diabetes mellitus Grandfather (Maternal) Family hx of colon cancer Social History Smoking Status: Former smoker Second Hand Exposure: Yes; Do You Dip or Chew Tobacco: No; Hx Alcohol Use: Yes Alcohol type: beer, wine and hard liquor Hx Substance Use: No Preferred Language: Polish Communication Ability: Effective 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 Beliefs That Will Affect Care: None Current Living Situation: Spouse Feels Safe at Home: Yes Assistive Devices: Crutches, Denture - Upper and Glasses Physical Exam 2 Vital Signs: Vital Signs - 24 hr 11/15/23 14:37 11/15/23 14:50 11/15/23 15:17 Temperature 36.5 C Temperature Source Temporal Artery Sc an Pulse Rate 79 73 Pulse Rate [Left F pankaj] Pulse Rhythm Regular Pulse Rhythm [Left Finger] Pulse Strength [Le ft Finger] Respiratory Rate 18 18 Respiratory Effort / Characteristics Non-Labored Sponta neous Respiratory Depth Normal Respiratory Patter n Regular Blood Pressure 153/85 H Blood Pressure [Ri ght Arm] Blood Pressure Alicia n 107 Blood Pressure Alicia n [Right Arm] Blood Pressure Pos ition Sitting Blood Pressure Pos ition [Right Arm] Pulse Oximetry 95 98 Oxygen Delivery Me thod Room Air Room Air Sepsis Recent Feve r Within 48 Hours No Sepsis New/Unexpla ined Change in Men che Status N/A Sepsis Action Take n by Nursing No Action Required 11/15/23 15:40 Temperature Temperature Source Pulse Rate Pulse Rate [Left F pankaj] 73 Pulse Rhythm Pulse Rhythm [Left Finger] Regular Pulse Strength [Le ft Finger] Normal Respiratory Rate 20 Respiratory Effort / Characteristics Non-Labored Sponta neous Respiratory Depth Normal Respiratory Patter n Regular Blood Pressure Blood Pressure [Ri ght Arm] 153/97 H Blood Pressure Alicia n Blood Pressure Alicia n [Right Arm] 115 Blood Pressure Pos ition Blood Pressure Pos ition [Right Arm] Sitting Pulse Oximetry 98 Oxygen Delivery Me thod Room Air Sepsis Recent Feve r Within 48 Hours Sepsis New/Unexpla ined Change in Men che Status Sepsis Action Take n by Nursing Physical Exam: Physical Exam GENERAL: oriented to person, place, and time. appears well-developed and well- nourished. HENT: Exam performed. - Head: Normocephalic and atraumatic. EYES: Conjunctivae and EOM are normal. Right eye exhibits no discharge. Left eye exhibits no discharge. No scleral icterus. NECK: Normal range of motion. Neck supple. No JVD present. CV: Normal rate, regular rhythm, normal heart sounds and intact distal pulses. 2+ pitting edema of the bilateral lower extremities. Palpable radial pulses bue. PULM/CHEST: Inspiratory rales at the bases bilaterally. ABD: The abdomen is soft. There is no tenderness. NEURO: Motor and sensation grossly intact. SKIN: Skin is warm and dry. He is not diaphoretic. PSYCH: normal mood and affect. Behavior is normal. Judgment and thought content normal. Course Course 1445: The patient was evaluated in room . A complete history and physical exam was performed Cardiac monitoring: An order was placed for continuous cardiac monitoring. The monitor shows a rate of 80 with sinus rhythm interpreted by me 1549: Patient's D-dimer is elevated. Will conduct CT of the chest. 1645: Vital signs stable.Labs show an elevated BNP of 1181 and elevated high- sensitivity troponin. CTA of the chest negative for PE but does show cardiomegaly with cephalization. Patient treated with Lasix 40 mg IV will be admitted to the [facility]ist team. Administered Medications Discontinued Medications Aspirin (Aspirin Chew 324 Mg) 324 mg PO NOW STA Stop: 11/15/23 14:51 Last Admin: 11/15/23 15:02 Dose: 324 mg Documented By: SHANTELL Furosemide (Furosemide 40 Mg/4 Ml Vial) 40 mg IV ONE ONE Stop: 11/15/23 16:44 Last Admin: 11/15/23 17:00 Dose: 40 mg Documented By: SHANTELL Ioversol (Optiray 320 125ml) 118 ml IV ONCE ONE Stop: 11/15/23 16:03 Last Admin: 11/15/23 16:03 Dose: 118 ml Documented By: DEBBIE Medical Decision Making Laboratory Data Attestation: I reviewed the patient's lab results. 11/15/23 14:51 11/15/23 14:51 Lab Results 11/15/23 11/15/23 Range/Units 14:51 16:55 WBC 6.77 (4.8-10.8) K/ul RBC 4.03 L (4.70-6.10) M/uL Hgb 13.0 L (14.0-18.0) g/dl Hct 37.7 L (42.0-52.0) % MCV 93.5 (80.0-100.0) fL MCH 32.3 (25.0-34.0) pg MCHC 34.5 (32.0-36.0) g/dL RDW Std Deviation 44.0 (36.4-46.3) fL RDW Coeff of Jorge 12.8 (11.5-14.5) % Plt Count 128 L (130-400) K/uL MPV 10.5 (9.4-12.4) fL Immature Gran % (Auto) 0.1 % Neut % (Auto) 71.1 % Lymph % (Auto) 19.9 % Randolph % (Auto) 7.2 % Eos % (Auto) 1.3 % Baso % (Auto) 0.4 % Neut # (Auto) 4.80 (1.40-6.50) K/uL Lymph # (Auto) 1.35 (1.20-3.40) K/uL Randolph # (Auto) 0.49 (0.11-0.59) K/uL Eos # (Auto) 0.09 (0.00-0.50) K/uL Baso # (Auto) 0.03 (0.00-0.20) K/uL Immature Gran # (Auto) 0.01 (0.01-0.20) K/uL PT 11.5 (9.0-12.0) Seconds INR 1.1 (0.9-1.1) APTT 28 (21-31) Seconds PTT Ratio 1.0 D-Dimer 1180 H* (0-500) ug/L FEU VBG pH 7.38 (7.36-7.41) VBG pCO2 39 (38-50) mmHg VBG pO2 55 mmHg VBG HCO3 23 mmol/L VBG O2 Saturation 87.6 % VBG Base Excess -1.8 mEq/L Sodium 140 (136-145) mmol/L Potassium 4.2 (3.5-5.1) mmol/L Chloride 110 H (98-107) mmol/L Carbon Dioxide 23 (21-32) mmol/L Anion Gap 7 (3-11) BUN 21 (6-23) mg/dl Creatinine 0.94 (0.6-1.4) mg/dl Est Cr Clr Drug Dosing 88.0 ml/min Est GFR ( Amer) 94.8 ml/min Est GFR (Non-Af Amer) 81.8 ml/min BUN/Creatinine Ratio 22.3 H (10-20) Glucose 116 H (70-99(Fasting)) mg/dl Calcium 8.9 (8.6-10.3) mg/dl Magnesium 2.0 (1.7-2.4) mg/dl Troponin I High Sens 30.9 H 33.9 H (0-20) pg/ml B-Natriuretic Peptide 1181 H (0-100) pg/ml Lipase 12 (11-82) U/L SARS-CoV-2 (PCR) NEGATIVE (Negative) Influenza Type A (PCR) Negative (Neg) Influenza Type B (PCR) Negative (Neg) RSV (RT-PCR) Negative (Neg) Imaging Data Attestation: I personally reviewed and interpreted this imaging study as follows: My Impression: Chest x-ray: Mild cardiomegaly with cephalization Radiologist's Impression: Chest X-Ray 11/15/23 14:50 XR chest 2V PA/lateral HISTORY: 68 years-old Male Chest pain, nonspecific COMPARISON: Chest CT 04/08/2023 TECHNIQUE: PA and lateral views of the chest FINDINGS: Cardiac silhouette is mildly enlarged. No pneumothorax, pleural effusion or airspace consolidation. Mild hyperinflation with diaphragmatic flattening. The bones appear intact. IMPRESSION: No acute process. ACT 112: Negative or not required by law. The above report was generated using voice recognition software. It may contain grammatical, syntax or spelling errors. Electronically signed by: Satnam Perry M.D. 11/15/2023 3:24 PM Chest CTA 11/15/23 15:49 CT angio chest PE protocol CT DOSE: 867.87 mGy.cm HISTORY: 68 years-old Male with ro pe. Acute shortness of breath TECHNIQUE: Multiple CTA images of the chest were obtained after the intravenous administration of 118 ml Optiray. Coronal and sagittal MIPS were obtained from the axial data set and were submitted for review. All measurements were obtained according to NASCET criteria. A dose lowering technique was utilized adhering to the principles of ALARA. COMPARISON: Chest CT 04/08/2023 FINDINGS: CTA: Mild cardiomegaly. Trace pericardial effusion. Moderate to extensive coronary artery calcifications. No thoracic aortic aneurysm. No central pulmonary emboli. Limited study secondary to contrast bolus timing. CT CHEST: Unremarkable thyroid. Node pathologically enlarged lymph nodes identified. Trace pleural effusions. Mild pulmonary emphysema suggested. No pneumothorax. Intralobular septal thickening with mild bibasilar atelectasis. There are a few scattered low suspicion solid pulmonary nodules redemonstrated measuring up to 4 mm which are unchanged from prior. No acute upper abdominal abnormality. Thickening of the adrenal glands suggestive of hyperplasia. Probable left adrenal adenoma. Unremarkable soft tissues. And chronic thoracolumbar compression deformities appear unchanged. No acute fracture identified. IMPRESSION: 1. Cardiomegaly with mild interstitial pulmonary edema and trace pleural effusions. 2. Dependent subsegmental bibasilar atelectasis. 3. Mild pulmonary emphysema with unchanged low suspicion solid pulmonary nodules measuring up to 4 mm. ACT 112: Negative or not required by law. The above report was generated using voice recognition software. It may contain grammatical, syntax or spelling errors. Electronically signed by: Satnam Perry M.D. 11/15/2023 4:30 PM ECG Data Attestation: I personally reviewed and interpreted this ECG as follows: Interpretation: Sinus rhythm with a rate of 81. NM 230 QRS [address] elevation or ST depression. PVCs present. [facility] Narrative 1445: The patient was evaluated in room . A complete history and physical exam was performed Cardiac monitoring: An order was placed for continuous cardiac monitoring. The monitor shows a rate of 80 with sinus rhythm interpreted by me 1549: Patient's D-dimer is elevated. Will conduct CT of the chest. 1645: Vital signs stable.Labs show an elevated BNP of 1181 and elevated high- sensitivity troponin. CTA of the chest negative for PE but does show cardiomegaly with cephalization. Patient treated with Lasix 40 mg IV will be admitted to the [facility] hospitalist team. Impression & Plan Acute combined systolic (congestive) and diastolic (congestive) heart failure Discharge Plan Visit Data Chief Complaint: Cardiac Assessment Stated Complaint: SOB ED Provider: Collins Armstrong Discharge Problem: Acute combined systolic (congestive) and diastolic (congestive) heart failure Patient Disposition: Being Evaluated by Hospitalist Forms Stand Alone Forms: My [facility] Prescriptions Prescriptions: No Action aspirin 81 mg Tablet,Delayed Release (Dr/Ec) 81 mg PO QAM Entresto 49-51 mg Tablet 1 tab PO BID multivitamin Tablet 1 tab PO QAM carvedilol 6.25 mg tablet 6.25 mg PO BID tramadol 50 mg tablet 50 mg PO Q8H PRN (Reason: Pain) pravastatin 20 mg tablet 20 mg PO HS calcium carbonate-vitamin D3 [Calcium 600 + D(3)] 600 mg-10 mcg (400 unit) Tablet 1 tab PO DAILY coQ10 (ubiquinol) 100 mg Capsule 100 mg PO BID Referrals Referrals: Trevor Serrano DO [Primary Care Provider] -
--- NOTE | 2023-11-15 19:00 | Electrocardiogram Report ---
Test Reason : Blood Pressure : */* mmHG Vent. Rate : 81 BPM Atrial Rate : 81 BPM P-R Int : 230 ms QRS Dur : 102 ms QT Int : 414 ms P-R-T Axes : 74 55 211 degrees QTcB Int : 480 ms Sinus rhythm with 1st degree A-V block with frequent , and consecutive Premature ventricular complexe s Prolonged QT Abnormal ECG When compared with ECG of 24-Aug-2017 18:42, Premature atrial complexes are no longer Present MI interval has increased Nonspecific T wave abnormality has replaced inverted T waves in Inferior leads Confirmed by Sandip Carlos ([id number]) on 11/15/2023 7:00:16 PM Referred By: Confirmed By: Sandip Carlos
[2023-11-15] MEDS: VALSARTAN/SACUBITRIL 51/49 MG TAB PO SCH (22:47)
[2023-11-15] MEDS: carvediloL 6.25 MG TAB PO SCH (22:47)
[2023-11-15] MEDS: ENOXAPARIN INJ 40 MG/0.4 ML SYR SQ SCH (22:47)
[2023-11-15] MEDS: PRAVASTATIN SOD 20 MG TAB PO SCH (22:48)
[2023-11-16 04:08] LABS: Basophils # (auto) 0.04 K/uL (0.00-0.20); Basophils % (auto) 0.6 %; Eosinophils # (auto) 0.13 K/uL (0.00-0.50); Hematocrit (blood only) 35.4 % (42.0-52.0); Hemoglobin 12.3 g/dl (14.0-18.0); Immature Granulocytes # (auto) 0.01 K/uL (0.01-0.20); Immature Granulocytes % (auto) 0.2 %; Lymphocytes % (auto) 29.5 %; Mean Corpuscular Hemoglobin 32.5 pg (25.0-34.0); Mean Corpuscular Hgb Conc 34.7 g/dL (32.0-36.0); Mean Corpuscular Volume 93.4 fL (80.0-100.0); Mean Platelet Volume 10.2 fL (9.4-12.4); Monocytes # (auto) 0.51 K/uL (0.11-0.59); Monocytes % (auto) 7.9 %; Neutrophils # (auto) 3.86 K/uL (1.40-6.50); Neutrophils % (auto) 59.8 %; Platelet Count 125 K/uL (130-400); RDW Standard Deviation 44.4 fL (36.4-46.3); Red Blood Count 3.79 M/uL (4.70-6.10); White Blood Count 6.45 K/ul (4.8-10.8)
[2023-11-16 04:14] LABS: BUN Creatinine Ratio 23.2 (10-20); Calcium 8.2 mg/dl (8.6-10.3); Creatinine Clr Calc Pharmacy 100.6 ml/min; Est GFR (African American) 103.8 ml/min; Est GFR (Non-African American) 89.6 ml/min; Potassium 3.6 mmol/L (3.5-5.1)
[2023-11-16] MEDS: traMADol HCL 50 MG TABLET PO PRN (06:01)
[2023-11-16] MEDS ORDERED: COUGH DROP (SUGAR FREE) LOZ 24 LOZ/1 BOX BUCCAL PRN (06:05)
[2023-11-16] MEDS: ASPIRIN 81 MG ECTAB PO SCH (08:39)
[2023-11-16] MEDS: FUROSEMIDE 40 MG/4 ML VIAL IV SCH (08:39)
--- NOTE | 2023-11-16 08:45 | Hospitalist Progress Note ---
Date of Service November 16, 2023 Assessment & Plan (1) Acute systolic CHF (congestive heart failure): Plan: Patient reports EF 40-45% in Mar 2023, will repeat TTE here to assess for new wall motion abnormalities and valvular disease Continue carvedilol and Entresto Add Furosemide 40mg IV BID Strict I&Os Daily standing weights TTE (2) CAD (coronary artery disease), [place] coronary artery: Plan: s/p JOVITA to mid LAD 2017 Continue ASA, carvedilol, Entresto, pravastatin Plan VTE Prophylaxis - Lovenox 40 mg SQ daily Diet -heart healthy, low Na, fluid restricted Disposition - admit to med/tele Admission and Anticipated Discharge Date Admission Date: November 15, 2023 Results & Data Results & Data Vital Signs (Past 12 Hours) Vital Signs Temp Pulse Pulse Resp BP Pulse Ox Pulse Ox 11/16/23 07:59 97.9 F 76 20 143/97 H 96 11/16/23 07:39 70 11/16/23 03:25 97.3 F L 73 18 135/89 95 11/15/23 22:25 11/15/23 22:25 97.5 F L 75 18 139/91 96 11/15/23 22:14 75 11/15/23 20:45 97 O2 Del Method O2 Del Method 11/16/23 07:59 Room Air 11/16/23 07:39 11/16/23 03:25 Room Air 11/15/23 22:25 Room Air 11/15/23 22:25 Room Air 11/15/23 22:14 11/15/23 20:45 Room Air PG Care Time/CCT Total # of Minutes Spent Total Time Spent with Patient: Total time spent is greater than 50% in coordination of care (as documented) at patient's floor/unit and/or counseling patient: Coding Diagnoses Acute systolic CHF (congestive heart failure) I50.21 CAD (coronary artery disease), [place] coronary artery I25.10
--- NOTE | 2023-11-16 11:03 | Hospitalist Progress Note ---
Date of Service November 16, 2023 Assessment & Plan (1) Acute systolic CHF (congestive heart failure): Plan: - likely secondary to recent increase in salt intake over the past 4 days prior to admission - Patient reports EF 40-45% in Mar 2023, will repeat TTE here to assess for new wall motion abnormalities and valvular disease - D-Dimer on admission 1180, CTA negative, troponin on admission negative - BNP on admission 1181 - Continue carvedilol and Entresto - Furosemide 40mg IV BID added on admission - Strict I&Os - Daily standing weights, stable - TTE, pending (2) CAD (coronary artery disease), [place] coronary artery: Plan: - s/p JOVITA to mid LAD 2017 - Continue ASA, carvedilol, Entresto, pravastatin Plan VTE Prophylaxis - Lovenox 40 mg SQ daily Diet - heart healthy, low Na, fluid restricted Code status - FULL CODE Potential d/c today 11/15, awaiting echo interpretation. Admission and Anticipated Discharge Date Admission Date: November 15, 2023 Subjective Patient is doing well overnight, no acute events. He is feeling much better today and feels as thought he could go home. He only has shortness of breath when laying down, and even still it is not significant to him. He has not required oxygen during his admission. He denies shortness of breath when sitting up and on exertion. He denies edema in his LE; no chronic history of edema. He denies CP, cough, MACE, dizziness, nausea, and dysuria. Patient follows with cardiology out pt every 6 months with an echo every 2 years. Recent echo in March showed 40% EF. Patient exercises every other day at home. Review of Systems Review of Systems: see HPI Physical Exam Physical Exam: The patient is awake, alert and oriented 3, well developed and well nourished, normocephalic and atraumatic, in no acute distress. Non-toxic appearing. HEENT- EOMI, mucous membranes moist. Hearing grossly intact. Heart-normal S1 and S2. No murmurs, rubs or gallops. Lungs- No respiratory distress, no accessory muscle use. No diminished lung sounds, crackles, wheezes, or rhonchi. Abdomen-normal bowel sounds and soft. No ascites noted. Non-tender. Extremities- no clubbing, cyanosis, or edema. Rheumatologic-normal range of motion. Psychiatric-normal affect. Results & Data Results & Data Vital Signs (Past 12 Hours) Vital Signs Temp Pulse Pulse Resp BP Pulse Ox O2 Del Method 11/16/23 07:59 36.6 C 76 20 143/97 H 96 Room Air 11/16/23 07:39 70 11/16/23 07:00 Room Air 11/16/23 03:25 36.3 C L 73 18 135/89 95 Room Air PG Care Time/CCT Total # of Minutes Spent Total Time Spent with Patient: Total time spent is greater than 50% in coordination of care (as documented) at patient's floor/unit and/or counseling patient: Coding Level of Care Code None Diagnoses Acute systolic CHF (congestive heart failure) I50.21 CAD (coronary artery disease), [place] coronary artery I25.10
--- NOTE | 2023-11-16 11:51 | XCELERA ---
[id number] [id number]
--- NOTE | 2023-11-16 13:13 | Discharge Summary ---
Discharge Summary Date of Service November 16, 2023 Principal Dx & Hospital Course #1 = Principal Diagnosis (1) Acute systolic CHF (congestive heart failure): - likely secondary to recent increase in salt intake over the past 4 days prior to admission - Patient reports EF 40-45% in Mar 2023 - D-Dimer on admission 1180, CTA negative, troponin on admission negative - BNP on admission 1181 - Continue carvedilol and Entresto - Furosemide 40mg IV BID added on admission - Strict I&Os - Daily standing weights, stable - TTE on admission showed EF of 35%, LV moderate global hypokinesis; improved from 2018 echo (2) CAD (coronary artery disease), [place] coronary artery: - s/p JOVITA to mid LAD 2017 - Continue ASA, carvedilol, Entresto, pravastatin Plan Diet - heart healthy, low Na, fluid restricted Code status - FULL CODE Discharge today 11/15 Admission HPI Per Admitting Provider Benito Valentin is a 68-year-old male who presents to the ER with chest pain and shortness of breath. He reports feeling an irregular and more noticeable fast pulse last week. He felt it might be due to caffeine so tried to reduce this but his exercise tolerance remained good and he was still going ot the gym without shortness of breath or chest pain. Around 4:30am this morning he had sudden onset shortness of breath with significant orthopnea and paroxysmal nocturnal dyspnea that woke him up. No chest pain, presyncope, claudication, nausea, vomiting or diaphoresis. He has not noticed any worsening leg swelling and is unsure if his weight has increased. He reports eating pizza with sausage yesterday and hoagies with deli meat the day before for a school reunion He has a significant history of CHF starting in 2018 with EF 15-20% at that time and subsequent catheterization with stent placed to mid LAD. He follows with [facility] cardiology with last echocardiogram in March (not available on admission but he reports LVEF 40-45%. He takes aspirin only Thursday, Fridays due to bruising. He took all his normal morning medications. Admission Exam Per Admitting Provider Constitutional: WD/WN, vitals as above Eyes: + anicteric sclerae; normal pupil size ENMT: external ear and nose normal, oropharynx normal Respiratory: normal respiratory effort; no respiratory distress Auscultation: + crackles (to mid zone of back); breath sounds present, no diminished lung sounds, no rales, no rhonchi and no wheezes Cardiovascular: Rate/Rhythm: regular rate and + irregularly irregular Heart Sounds: no murmur Vessels: + JVD Extremities: normal capillary refill; no calf tenderness and no pedal edema (1+ b/l equal to knees) Gastrointestinal (Abdomen): normal bowel sounds, soft, nontender, no hepatosplenomegaly Musculoskeletal: no cyanosis or clubbing, extremities motor strength 5/5 Skin: no rashes, warm and dry Neurologic: moves all extremities and awake; not confused Psychiatric: A+Ox3, euthymic affect Discharge Exam The patient is awake, alert and oriented 3, well developed and well nourished, normocephalic and atraumatic, in no acute distress. Non-toxic appearing. HEENT- EOMI, mucous membranes moist. Hearing grossly intact. Heart-normal S1 and S2. No murmurs, rubs or gallops. Lungs- No respiratory distress, no accessory muscle use. No diminished lung sounds, crackles, wheezes, or rhonchi. Abdomen-normal bowel sounds and soft. No ascites noted. Non-tender. Extremities- no clubbing, cyanosis, or edema. Rheumatologic-normal range of motion. Psychiatric-normal affect. Discharge Plan Discharge Items Patient Disposition: Home - Self-Care Reason For Visit: ACUTE CONGESTIVE HEART FAILURE Discharge Diagnosis: 1. Congestive heart failure 2. CAD Condition on Discharge: Good Activity: Resume your previous activity Non-emergency contact: Primary Care Provider and Pst Manager Call non-emergency contact if: you have any medication questions and your symptoms worsen Follow-up/Referrals: Trevor Serrano DO [Primary Care Provider] - 11/24/23 10:45 am Diet: Regular Addtl Attending Provider Instructions: You were seen for a CHF exacerbation, likely cause by recent poor/ high salt intake diet. Your echocardiogram during admission showed an ejection fraction of 35%. When compared to your echo in 2018 that we have, you left ventricular systolic function is improved. I recommend to limit salt intake and try to eat a healthy diet. Pending Studies at Discharge: No Stand-Alone Forms: My [facility] Medications and DC Order Prescriptions: Continued aspirin 81 mg Tablet,Delayed Release (Dr/Ec) 81 mg PO QAM Entresto 49-51 mg Tablet 1 tab PO BID multivitamin Tablet 1 tab PO QAM carvedilol 6.25 mg tablet 6.25 mg PO BID tramadol 50 mg tablet 50 mg PO Q8H PRN (Reason: Pain) pravastatin 20 mg tablet 20 mg PO HS calcium carbonate-vitamin D3 [Calcium 600 + D(3)] 600 mg-10 mcg (400 unit) Tablet 1 tab PO DAILY coQ10 (ubiquinol) 100 mg Capsule 100 mg PO BID Discharge Orders: Discharge Order- CHF (Routine); Ordered 11/16/23 Ordered By: Marycruz Lebron/Other Patient Handouts: Heart Failure Make Changes Diet Admission Data Admit Date/Time: 11/15/23 17:00 Attending Provider: Von De Oliveira Admit Provider: Balbir David Primary Care Provider: Trevor Serrano Other Providers: Balbir David Other Interventions: Discharge Summary Assessment (RN) Last Done: 11/16/23 14:03 Hospital Stay Data Consultations 11/15/23 16:45 ED Decision to Admit Stat Diagnostic Imagining Performed Chest X-Ray 11/15/23 14:50 XR chest 2V PA/lateral HISTORY: 68 years-old Male Chest pain, nonspecific COMPARISON: Chest CT 04/08/2023 TECHNIQUE: PA and lateral views of the chest FINDINGS: Cardiac silhouette is mildly enlarged. No pneumothorax, pleural effusion or airspace consolidation. Mild hyperinflation with diaphragmatic flattening. The bones appear intact. IMPRESSION: No acute process. ACT 112: Negative or not required by law. The above report was generated using voice recognition software. It may contain grammatical, syntax or spelling errors. Electronically signed by: Satnam Perry M.D. 11/15/2023 3:24 PM Chest CTA 11/15/23 15:49 CT angio chest PE protocol CT DOSE: 867.87 mGy.cm HISTORY: 68 years-old Male with ro pe. Acute shortness of breath TECHNIQUE: Multiple CTA images of the chest were obtained after the intravenous administration of 118 ml Optiray. Coronal and sagittal MIPS were obtained from the axial data set and were submitted for review. All measurements were obtained according to NASCET criteria. A dose lowering technique was utilized a dhering to the principles of ALARA. COMPARISON: Chest CT 04/08/2023 FINDINGS: CTA: Mild cardiomegaly. Trace pericardial effusion. Moderate to extensive coronary artery calcifications. No thoracic aortic aneurysm. No central pulmonary emboli. Limited study secondary to contrast bolus timing. CT CHEST: Unremarkable thyroid. Node pathologically enlarged lymph nodes identified. Trace pleural effusions. Mild pulmonary emphysema suggested. No pneumothorax. Intralobular septal thickening with mild bibasilar atelectasis. There are a few scattered low suspicion solid pulmonary nodules redemonstrated measuring up to 4 mm which are unchanged from prior. No acute upper abdominal abnormality. Thickening of the adrenal glands suggestive of hyperplasia. Probable left adrenal adenoma. Unremarkable soft tissues. And chronic thoracolumbar compression deformities appear unchanged. No acute fracture identified. IMPRESSION: 1. Cardiomegaly with mild interstitial pulmonary edema and trace pleural effusions. 2. Dependent subsegmental bibasilar atelectasis. 3. Mild pulmonary emphysema with unchanged low suspicion solid pulmonary nodules measuring up to 4 mm. ACT 112: Negative or not required by law. The above report was generated using voice recognition software. It may contain grammatical, syntax or spelling errors. Electronically signed by: Satnam Perry M.D. 11/15/2023 4:30 PM Discharge Instructions Given to Patient (Per Discharging Provider) You were seen for a CHF exacerbation, likely cause by recent poor/ high salt intake diet. Your echocardiogram during admission showed an ejection fraction of 35%. When compared to your echo in 2018 that we have, you left ventricular systolic function is improved. I recommend to limit salt intake and try to eat a healthy diet. Supervising Physician Co-Signing Physician Notes Patient was seen and examined independently I discussed the case with Marycruz DE LA GARZA I reviewed pertinent past medical social family history and also the plan of care and agree with the plan of care. Patient is lying flat in the room he is feeling much better does admit to dietary indiscretion Having no chest pain or palpitations Patient fraction slightly diminished from previous but EF is 35% continuing cardiac medications for systolic heart failure Evaluation shows heart to be regular without murmurs lungs are clear with diminished at the bases (question COPD) Patient be discharged back to his diuretic regiment with close outpatient follow-up with cardiology. Greater than 30 minutes required. This discharge Any exceptions will be noted below Total Time Total Time Spent Total Time Spent (In Minutes): 60 Coding Level of Care Code None Diagnoses Acute systolic CHF (congestive heart failure) I50.21 CAD (coronary artery disease), [place] coronary artery I25.10
--- NOTE | 2023-11-16 17:00 | Billing Data ---
Date of Service November 16, 2023 Coding Level of Care Code 39771 INP/OBS DISCH >30 MIN
== END 2023-11-16 14:20 | disposition home or self-care (01) | DRG 291 ==
LOC: ED 14:26 → EDINP 17:00 → SUATTDRO 17:00 → 2W 21:37

== ENCOUNTER 2024-04-02 06:02 | Inpatient (IN) ==
--- OUTSIDE RECORDS SUMMARY | 2024-04-02 06:06 | External Medical Summary | Continuity of Care Document ---
Author Name Unknown Organization [facility] [id number] [place] [phone] Care Team Providers Care Settlement Agent Name Role Phone Trevor Serrano Primary Care Physician [phone] Encounter [facility] [id number] Date(s): 11/24/23 - 11/24/23 [facility] [address] [facility] [place] [address] [facility] [address] [address] [phone] Encounter Diagnosis Body mass index [BMI] 29.0-29.9, adult(Discharge Diagnosis) - 11/24/23 Systolic CHF(Discharge Diagnosis) - 11/24/23 Neuropathy of hand(Discharge Diagnosis) - 11/24/23 Unspecified systolic (congestive) heart failure(Final) - Unspecified mononeuropathy of unspecified upper limb(Final) - Discharge Disposition: Home or Self Care Attending Physician: MD Herndon Christopher Allergies, Adverse Reactions, Alerts No Known Allergies Assessment and Plan Extracted from: Title:Hospital f/u Author:DO Graf Christina E Date:11/24/23 1.Systolic CHF Pt continues with mild paroxysmalnocturnaldyspneaand1+pretibial edemasincehospitalstay.Pt reportshe is takingolderprescriptionforfurosemide at home whenneeded. Chronic condition exacerbated/progressive/side effects of treatment Goal:Resolution Data:external notes reviewedincluding:[facility] labwork _ Plan: Order BMP, K+ Restartfurosemide daily - home med and he willcall to let us know the dosage Education regarding low sodium diet Follow up cardiology 2.Neuropathy of hand Ptis reporting intermittent full handnumbnessthat occurs at night when he is sleeping. Pt denies painor residual tingling.Episodes have been occurring forseveral years. He has hadan MRI of his cervical spine in thepast related to hand numbness.Today,Tinel's signs and Phalen'stest werenegative.Nothenarwasting noted.Normal gross process architect andwrsit strength noted.Plan to assess for neuropathy Chronic condition exacerbated/progressive/side effects of treatment Goal:Resolution Data:unique tests ordered: _ Plan: OrderedFerritin level vitaminD [id number] Folate level TSH Immunizations Given and Recorded Vaccine Date Status [...] 09/19/15 Given tetanus/diphtheria/pertuss, acel (Tdap) 10/20/11 G gabi 1Result Comment: 2022-03-27: Historical information-source unspecified 2Result Comment: [facility] 3Result Comment: 2021-01-23: Historical information-source unspecified 4Result Comment: 2021-01-23: Historical information-source unspecified 5Result Comment: 2021-01-23: Historical information-source unspecified Medications carvedilol 6.25 mg oral tablet Start: 08/18/23 9:12:00 AM EDT, 1 tab, PO, bid, Disp# 180 tab, Refills: 3, Pharmacy: [id number] Start Date: 08/18/23 Status: Ordered Entresto 49 mg-51 mg oral tablet Start: 12/02/22 3:45:00 PM EDT, 1 tab, PO, bid, Disp# 180 tab, Refills: 3, Pharmacy: [id number] Start Date: 12/02/22 Status: Ordered multivitamin Start: 10/01/22 12:45:00 PM EDT, 1 tab, PO, Daily Start Date: 10/01/22 Status: Ordered pravastatin 20 mg oral tablet Start: 05/08/23 10:54:00 AM EST, 1 tab, PO, qhs, Disp# 90 tab, Refills: 3, Pharmacy: [id number] Start Date: 05/08/23 Status: Ordered traMADol 50 mg oral tablet Start: 11/18/23 11:33:00 AM EDT, See Instructions, Disp# 45 tab, Refills: 3, TAKE 1 TABLET BY MOUTH EVERY 8 HOURS NEEDED FOR PAIN, Pharmacy: [id number] Start Date: 11/18/23 Status: Ordered Tylenol Arthritis Caplet Start: 05/05/19 9:50:00 AM EST, 1,300 mg =, PO, q8h, PRN: pain Start Date: 05/05/19 Status: Ordered Vitamin D3 Start: 08/20/16 9:40:00 AM EDT, 2,000 Int_Unit =, PO, Daily Start Date: 08/20/16 Status: Ordered Mental Status 11/24/23 Barriers to Learning one year None evide nt Mandatory Health Literacy Documentation Yes Health Literacy Communication Barriers N ever Primary Language Mongolian Problem List Condition Confirmation Course Effective Dates Status H ealth Status Informant Bradycardia Confirmed 10/02/23 Active Cardiomyopathy Confirmed 10/02/23 Active Chronic low back pain Confirmed Active CAD in hoopa artery Confirmed Active Right foot drop Confirmed Active Generalized hyperhidrosis Confirmed 10/02/23 Active History of compression fracture of spine [...] weakness Confirmed Active Neurogenic amyotrophy Confirmed Active Paresthesia of skin Confirmed 10/02/23 Active Medicare annual wellness visit, subsequent Confirmed [...] mass index [BMI] 29.0-29.9, adult Discharge Diagnosis 11/24/23 Non-Specified Neuropathy of hand Discharge Diagnosis 11/24/23 Non-Specified Systolic CHF Discharge Diagnosis 11/24/23 Non-Specified Procedures Procedure Date Related Diagnosis Body [...] descending artery. Successful angioplasty, drug-eluting stent placement. Results Laboratory List Name Date Basic Metabolic Panel (BASIC METAB PANEL ) 11/24/23 Complete Blood Count (CBC) 11/24/23 Ferritin (FERRITIN) 11/24/23 Folic Acid Level (FOLIC ACID) 11/24/23 Parathyroid Hormone, Intact (PTH, INTACT ) 11/24/23 Request to FAX Report (First Location) ( ACC NO TO BE FAXED) 11/24/23 Vitamin B12 Level (VITAMIN B12) 11/24/23 Vitamin D, 25-Hydroxy Level, Total (25-H YDROXY VITAMIN D) 11/24/23 Most recent to oldest [Reference Range]: 1 eGFR CKD-EPI [>60 mL/min/1.73 m2] 83 mL/ min/1.73 m2 (11/24/23 3:27 PM) Vitamin D, 25-Hydroxy [30-100 ng/mL] 32 ng/mL 1 (11/24/23 3:27 PM) Estimated CrCl 81.63 mL/min (11/24/23 9:12 PM) Phone No [phone] (11/24/23 3:27 PM) Faxed on: 11/25/23 10:39 (11/24/23 3:27 PM) MPV [9.0-12.2 fL] 10.7 fL (11/24/23 3:27 PM) RDW [11.5-14.2 %] 13.0 % (11/24/23 3:27 PM) Anion Gap [5-14 mmol/L] 12 mmol/L (11/24/23 3:27 PM) B12 [211-946 pg/mL] 770 pg/mL (11/24/23 3:27 PM) BUN [6-23 mg/dL] 13 mg/dL (11/24/23 3:27 PM) Ca [8.4-10.2 mg/dL] 9.5 mg/dL (11/24/23 3: PM) Cl- [98-107 mmol/L] 104 mmol/L (11/24/23 3: PM) HCO3 [22-29 mmol/L] 27 mmol/L (11/24/23 3: PM) Cret [0.70-1.30 mg/dL] 0.98 mg/dL (11/24/23 3: PM) Ferritin [30.0-400.0 ng/mL] 275.6 ng/mL (11/24/23 3: PM) Folate [>7.2 ng/mL] 19.3 ng/mL (11/24/23 3: PM) Glu [74-109 mg/dL] 97 mg/dL 3 (11/24/23 3: PM) Hct [39-48 %] 41.3 % (11/24/23: PM) Hgb [13.0-17.0 g/dL] 13.7 g/dL (11/24/23 3: PM) PTH Intact [15.0-65.0 pg/mL] 60.0 pg/mL (11/24/23: PM) K [3.5-5.1 mmol/L] 4.0 mmol/L (11/24/23 3: PM) MCH [28-33 pg] 32.5 pg (11/24/23: PM) MCHC [32-36 g/dL] 33.2 g/dL (11/24/23 3: PM) MCV [81-96 fL] 98.1 fL *HI* (11/24/23 3: PM) Na [136-145 mmol/L] 143 mmol/L (11/24/23 3: PM) Plts [150-350 K/uL] 159 K/uL (11/24/23 3: PM) RBC [4.40-5.60 M/uL] 4.21 M/uL *LOW* (11/24/23 3: PM) WBC [4.0-10.4 K/uL] 6.12 K/uL (11/24/23 3:27 PM) 1Result Comment: Deficiency: <20 ng/mL Insufficiency: 21-29 ng/mL Sufficiency: 30-100 ng/mL Potenial Toxicity: >150 ng/mL 2Result Comment: Testing Performed By: Dept of Pathology [facility] [address], [address], [place] [address] 3Result Comment: ADA recommendation for FASTING Serum/Plasma Glucose: Normal: 70-100 mg/dL Prediabetes: 100-125 mg/dL Diabetes: 126 mg/dL or higher Vital Signs Most recent to oldest [Reference Range]: 1 Height 179.5 cm (11/24/23 10:56 AM) Patient Weight 93.9 kg (11/24/23 10:56 AM) Body Mass Index 29.14 kg/m2 (11/24/23 10:56 AM) Heart Rate 72 bpm (11/24/23 10:56 AM) Respiratory Rate 12 br/min (11/24/23 10:56 AM) Blood Pressure 120/72mmHg (11/24/23 10:56 AM) Cuff Pulse Pressure 48 mmHg (11/24/23 10:56 AM) Social History Social History Type Response Tobacco Former smoker, Cigar ettes, 1 per day. 40 year(s). Started age 22 Years. Stopped age 62 Years. Smoking Status Never smoked cigaret braden Sex Sex Representation Male (finding) FCM Outpt Note * MD Sebas, Devorah: MODIFY MD Mullen Dongsheng: MODIFY Event Display: FCM Outpt Note Authored Date: Chief Complaint Hospital F/U for CHF History of Present Illness Pt is a 68 yo male with PMH of CAD, cardiomyopathy, emphysema, HTN, right UE weakness presents after hospital stay om 11/16/23. Hospitalized for difficulty breathing, heart palpitations-Likely related related to diet Had cardiac work up and diuretics Has reports he better after returning to his gym routine He denies CP, some SOB when laying in bed Has tingling in hands at night, wakes him up from sleep-Not happening during day. No neck pain Has been taking old furosemide since he returned home Denies swelling in ankles and feet. Denies dysuria, hesitation, voiding regularly, mild increase in frequency when taking furosemide. Review of Systems as per HPI Physical Exam Vitals & Measurements HR:72(Monitored) RR:12 BP:120/72 SpO2:96% HT:179.5cm WT:93.900kg(Dosing) WT:93.9kg BMI:29.14 PHQ2 Data(Data Documented on:11/24/2023 10:56) Emotional health assessment NEGATIVE General: _Alert and oriented, No acute distress Cardiovascular: _Normal rate, Regular rhythm, No murmur, No gallop. 1+ pretibial edema at bilateral lower legs Respiratory: _Lungs with fine crackles in lower lobes bilaterallywithauscultation, Respirations are non-labored, Breath sounds are equal Psych: Mood-affect congruence. Speech is of normal pace and content Assessment/Plan 1.Systolic CHF Pt continues with mild paroxysmalnocturnaldyspneaand1+pretibial edemasincehospitalstay.Pt reportshe is takingolderprescriptionforfurosemide at home whenneeded. Chronic condition exacerbated/progressive/side effects of treatment Goal:Resolution Data:external notes reviewedincluding:[facility] labwork _ Plan: Order BMP, K+ Restartfurosemide daily - home med and he willcall to let us know the dosage Education regarding low sodium diet Follow up cardiology 2.Neuropathy of hand Ptis reporting intermittent full handnumbnessthat occurs at night when he is sleeping. Pt denies painor residual tingling.Episodes have been occurring forseveral years. He has hadan MRIof his cervical spine in thepast related to hand numbness.Today,Tinel's signs and Phalen'stest werenegative.Nothenarwasting noted.Normal gross process architect andwrsit strength noted.Plan to assess for neuropathy Chronic condition exacerbated/progressive/side effects of treatment Goal:Resolution Data:unique tests ordered: _ Plan: OrderedFerritin level vitaminD [id number] Folate level TSH Attestation Preceptor Note: I saw the patient and confirmed the esteban portions of the history and physical exam. Discussed with the resident physician and agree with the above impression and plan. Advised to have close f/u with us and call with any concerns. Devorah Mullen MD Problem List/Past Medical History Ongoing Bradycardia CAD in hoopa artery Cardiomyopathy Chronic low back pain Colon polyp, hyperplastic Emphysema lung Foraminal stenosis of lumbar region Generalized hyperhidrosis History of compression fracture of spine History of prior cigarette smoking History of total right hip arthroplasty Hypertension IMPOTENCE OF ORGANIC ORIGIN Medicare annual wellness visit, subsequent Muscle weakness of right arm Need for pneumococcal vaccine Need for shingles vaccine Need for Tdap vaccination Neurogenic amyotrophy Paresthesia of skin Right arm weakness Right foot drop Right hand pain Right leg weakness Skin lesion| Status: Inactive Status post insertion of drug-eluting stent into left anterior descending artery for coronary artery disease Systolic CHF Weight disorder Resolved History of tobacco use Left ventricular apical thrombus without NH Malignant hypertension PVC (premature ventricular contraction) Screening for prostate cancer Tobacco abuse Procedure/Surgical History CT of lungs| Service Date: 3Chest X-ray| Service Date: 04/18/2019X-ray of both knees| Service Date: 02/07/2019MRI of right shoulder| Service Date: 11/25/2018Shoulder X-ray| Service Date: 11/01/2018Lumbar spinal fusion| Service Date: 03/16/2018MRI of lumbar spine| Service Date: 11/06/2017Cardiac catheterization| Service Date: 08/22/2017Chest X-ray/KUB| Service Date: 08/14/2017Colonoscopy| Service Date: 03/15/2014deviated septum repainright hip replacement Cardiac catheter & angioplasty Medications acetaminophen(Tylenol Arthritis Caplet), 1300 mg, PO, q8h, PRN carvedilol(carvedilol 6.25 mg oral tablet), 6.25 mg= 1 tab, PO, bid, 3 refills cholecalciferol(Vitamin D3), 2000 Int_Unit, PO, Daily multivitamin, 1 tab, PO, Daily pravastatin(pravastatin 20 mg oral tablet), 20 mg= 1 tab, PO, qhs, 3 refills sacubitril-valsartan(Entresto 49 mg-51 mg oral tablet), 1 tab, PO, bid, 3 refills traMADol(traMADol 50 mg oral tablet), See Instructions, 3 refills Allergies NKA Social History Smoking Status Never smoked cigarettes Alcohol - Low Risk Use:Current Type:Beer, Liquor Frequency:3-5 times per week Employment/School Status:Retired Description:Chemical prep tech at [employer] Work hazards:Hazardous materials Exercise - Regular exercise Duration (average number of minutes):90 Times per week:3-4 times/week Exercise type:Weight lifting, cycling - Comments: 3-5 miles at work. Home/Environment Lives with:Spouse Living situation:Home/Independent Feels unsafe at home:No Family/Friends available to help:Yes - Comments: has psoriatic arthritis Substance Abuse - Denies Substance Abuse Tobacco - High Risk Use:Former smoker Type:Cigarettes Tobacco use per day:1 Number of years:40 Started at age:22Years Stopped at age:62Years Family History Arthritis: Father. Cancer: Mother and Father. Cardiovascular disease: Father. Cardiovascular disease: Father. Diabetes: Mother. Heart attack: Father. Heart murmur: Father. High Blood Pressure: Mother. Hypertension: Mother. Stroke: Brother. Type II diabetes mellitus: Brother. Health Status Family Member(s) Family Member(s) Relationship: Mother, Age: 71 Years, Cause: Breast CA Relationship: Father, Age: 57 Years, Cause: lymphoma Relationship: Brother, Age: 63 Years, Cause: NH, DM Immunizations Vaccine Date Status pneumococcal 20-valent conjugate vaccine 03/27/2022 Given zoster vaccine, inactivated 03/27/2022 Given SARS-CoV-2 mRNA-1273 (6y+ bivalent) 02/10/2022 Recorded Comments : 2022-03-27: Historical information-source unspecified SARS-CoV-2 mRNA (tozinameran 5y-11y) 07/18/2021 Recorded Comments : [facility] [place] influenza virus vaccine, inactivated 01/23/2021 Given SARS-CoV-2 (COVID-19) mRNA BNT-162b2 vax 05/28/2020 Recorded Comments : 2021-01-23: Historical information-source unspecified SARS-CoV-2 (COVID-19) mRNA-1273 vaccine 05/25/2020 Recorded Comments : 2021-01-23: Historical information-source unspecified SARS-CoV-2 (COVID-19) mRNA BNT-162b2 vax 05/07/2020 Recorded Comments : 2021-01-23: Historical information-source unspecified influenza virus vaccine, inactivated 12/21/2019 Given influenza virus vaccine, inactivated 01/06/2019 Given pneumococcal 23-valent vaccine 03/18/2018 Given influenza virus vaccine, inactivated 03/19/2016 Given zoster vaccine live 09/19/2015 Given influenza virus vaccine, inactivated 03/22/2015 Given influenza virus vaccine, inactivated 01/30/2014 Given influenza virus vaccine, inactivated 02/02/2013 Given tetanus/diphtheria/pertuss, acel (Tdap) 10/20/2011 Given Recommendations Health Maintenance Pending(in the next year) OverDue Medicare Annual Wellness Visit due03/28/23and every 1year Adult Influenza Vaccine due09/06/23and every 1year Due Adult COVID-19 Vaccination due11/24/23Unknown Frequency Adult Social Determinants of Health Screening due11/24/23Unknown Frequency Adult Tdap/Td Vaccine due11/24/23Unknown Frequency Hepatitis C Screening due11/24/23One-time only Shingles Vaccine due11/24/23One-time only Due In Future Colorectal Cancer Screening not due until03/12/24and every 10year Satisfied(in the past 1 year) Satisfied Body Mass Index on11/24/23.Satisfied by GRAEME Ortiz Paul Lipid Screening on07/16/23.Satisfied by Contributor_system, [employer]version Electronic Signature on File Electronically Reviewed/Signed by: Liliya Graf DO Author Signature Dt/Tm:11/24/2023 12:39 PM Resident Department of Family Medicine Electronically Reviewed/Signed by: Devorah Mullen MD Cosigner Signature Dt/Tm: 11/24/2023 04:45 PM Department of Family Medicine [facility] Patient Care team information Care Team Personnel Name: MD Holliday Jonathan D Position: Physician - Family Med Member Role: Lifetime Relationship Address: [address] [place] [address] [place] Name: DO Serrano Franklin J Position: Physician - Family Med Member Role: Primary Care Provider Address: [address] [place] [address] [place] Care Team Related Persons Name: MOOSE TORREZ Name: MOOSE TORREZ"
--- OUTSIDE RECORDS SUMMARY | 2024-04-02 06:06 | External Medical Summary | Continuity of Care Document ---
Author Name Unknown Organization [place] [address] [place] [phone] Care Team Providers Care Head Refrigerating Engineer Name Role Phone Trevor Serrano Primary Care Physician [phone] Encounter [facility] [id number] Date(s): 12/15/23 - 12/15/23 [facility] [address] [facility] [address] [facility] [address] [facility] [place] [address] [phone] Encounter Diagnosis Systolic CHF(Discharge Diagnosis) - 12/14/23 Neuropathy of hand(Discharge Diagnosis) - 12/14/23 Frequent urination at night(Discharge Diagnosis) - 12/15/23 Discharge Disposition: Home or Self Care Attending Physician: MD Herndon Christopher Allergies, Adverse Reactions, Alerts No Known Allergies Assessment and Plan Extracted from: Title:F/u hand numbness Author:DO Graf Chris tina E Date:12/15/23 1.Systolic CHF Pt is abletolayflat tosleep,deniesSOBwithusual activities.OnPE,lungs areclear and noLEedemais noted.Ptcounseled oncontinuinglow sodiumdiet, exerciseandweightloss. Chronic condition, stable Goal:Resolution Data:unique tests reviewed:Labwork from _ Plan: Continue lowsodium diet,exercise, and prescribed medications for CHF, cholesterol and HTN. 2.Neuropathy of hand Pt continues with bilateral hand numbness, primarily at night. Lab work for anemia, vitamin deficienciesor aparathyroidism were normal. Specialtesting forcarpal tunnel, thoracic outlet, and cervical nerve impingement are negative. Testingmuscle breakdown secondary to statin, nerve conduction testing andneurology consultare next steps. Advised toreduce to 1 pillow when he sleeps and use wrist splintat night. Chronic condition exacerbated/progressive/side effects of treatment Goal:Resolution Data:unique tests ordered: unique tests reviewed:CBC, VitD, B12,ferritin,folateandPTHlevelsfromSept 2023 Plan: Ordered CPK, neurology consult, upper extremitynerve conduction testing 3.Frequent urination at night Pt reportsfrequenturination at night. Last PSA was more than 2 years ago. Chronic condition exacerbated/progressive/side effects of treatment Goal:Resolution Data:unique tests ordered: PSA _ Plan: Ordered PSA Immunizations Given and Recorded Vaccine Date Status [...] Comment: 2022-03-27: Historical information-source unspecified 2Result Comment: [facility] 3Result Comment: 2021-01-23: Historical information-source unspecified 4Result Comment: 2021-01-23: Historical information-source unspecified 5Result Comment: 2021-01-23: Historical information-source unspecified Medications aspirin 81 mg oral capsule Start: 12/15/23 12:32:00 PM EDT, 1 cap, PO, qMonWedFri, Disp# 30 cap, other Start Date: 12/15/23 Status: Ordered calcium (as calcium citrate) 250 mg oral tablet Start: 12/15/23 9:58:00 AM EDT, 1 tab, PO, bid Start Date: 12/15/23 Status: Ordered carvedilol 6.25 mg oral tablet Start: 08/18/23 9:12:00 AM EDT, 1 tab, PO, bid, Disp# 180 tab, Refills: 3, Pharmacy: [id number] Start Date: 08/18/23 Status: Ordered Entresto 49 mg-51 mg oral tablet Start: 11/30/23 9:02:00 AM EDT, 1 tab, PO, bid, Disp# 180 tab, Refills: 3, Pharmacy: [id number] Start Date: 11/30/23 Status: Ordered multivitamin Start: 10/01/22 12:45:00 PM EDT, 1 tab, PO, Daily Start Date: 10/01/22 Status: Ordered pravastatin 20 mg oral tablet Start: 05/08/23 10:54:00 AM EST, 1 tab, PO, qhs, Disp# 90 tab, Refills: 3, Pharmacy: [id number] Start Date: 05/08/23 Status: Ordered traMADol 50 mg oral tablet Start: 11/18/23 11:33:00 AM EDT, See Instructions, Disp# 45 tab, Refills: 3, TAKE 1 TABLET BY MOUTH EVERY 8 HOURS NEEDED FOR PAIN, Pharmacy: [id number] Start Date: 11/18/23 Status: Ordered Tylenol Arthritis Caplet Start: 05/05/19 9:50:00 AM EST, 1,300 mg =, PO, q8h, PRN: pain Start Date: 05/05/19 Status: Ordered Vitamin D3 Start: 08/20/16 9:40:00 AM EDT, 2,000 Int_Unit =, PO, Daily Start Date: 08/20/16 Status: Ordered Mental Status 12/15/23 Barriers to Learning one year None evide nt Mandatory Health Literacy Documentation Yes Health Literacy Communication Barriers N ever Primary Language [place] Problem List Condition Confirmation Course Effective Dates Status H ealth Status Informant Bradycardia Confirmed 10/02/23 Active Cardiomyopathy Confirmed 10/02/23 Active Chronic low back pain Confirmed Active CAD in [place] artery Confirmed Active Right foot drop Confirmed [...] Effective Dates Health Status Clinical Service Informant Neuropathy of hand Discharge Diagnosis 12/14/23 Non-Specified Systolic CHF Discharge Diagnosis 12/14/23 Non-Specified Frequent urination at night Discharge Diagnosis 12/15/23 Non-Specified Procedures Procedure Date Related Diagnosis Body [...] Most recent to oldest [Reference Range]: 1 Patient Weight 92.1 kg (12/15/23 10:00 AM) Temperature [36.5-37.9 DegC] 37.7 DegC (12/15/23 10:00 AM) Blood Pressure 116/74mmHg (12/15/23 10:00 AM) Social History Social History Type Response Tobacco Former smoker, Cigar ettes, 1 per day. 40 year(s). Started age 22 Years. Stopped age 62 Years. Smoking Status Never smoked cigaret braden Sex Sex Representation Male (finding) [facility]CM Outpt Note * MD Mullen Dongsheng: MODIFY MD Mullen Dongsheng: MODIFY Event Display: [facility]CM Outpt Note Authored Date: [id number] Chief Complaint Here for 2wk f/u. History of Present Illness Pt is a 68 yo male who presents for 2 weekfollow up after recent hospitalization for CHF exacerbation. He c/o intermittent handnumbness primarily when sleeping. Lab work was ordered at his last visit- all were normal. Hand numbness- Occurring 3-4 nights per week Awakes from sleep, usually inleft side-lying Able to make it better with changing position Denies weakness, pain at hands or neck, CP, SOBwith usualactivities Pt is exercising on stationary bike and usingweights at gyms for upper and lower and body. Review of Systems As per HPI Physical Exam Vitals & Measurements T:37.7C BP:116/74 SpO2:94% WT:92.100kg(Dosing) WT:92.1kg PHQ2 Data(Data Documented on:12/15/2023 09:59) Emotional health assessment NEGATIVE General: _Alert and oriented, No acute distress Cardiovascular: _Normal rate, Regular rhythm, No murmur, No gallop. Respiratory: _Lungs are clear to auscultation, Respirations are non-labored, Breath sounds are equal Neurologic:Normal sensory, Normal motor function Spurling test- negative bilaterally. Kirk test- negative bilaterally. Wrist and hand strength is grossly 5/5. Psych: Mood-affect congruence. Reports no SI/HI. Speech is of normal pace and content Assessment/Plan 1.Systolic CHF Pt is abletolayflat tosleep,deniesSOBwithusual activities.OnPE,lungs areclear and noLEedemais noted.Ptcounseled oncontinuinglow sodiumdiet, exerciseandwei ghtloss. Chronic condition, stable Goal:Resolution Data:unique tests reviewed:Labwork from _ Plan: Continue lowsodium diet,exercise, and prescribed medications for CHF, cholesterol and HTN. 2.Neuropathy of hand Pt continues with bilateral hand numbness, primarily at night. Lab work for anemia, vitamin deficienciesor aparathyroidism were normal. Specialtesting forcarpal tunnel, thoracic outlet, and cervical nerve impingement are negative. Testingmuscle breakdown secondary to statin, nerve conduction testing andneurology consultare next steps. Advised toreduce to 1 pillow when he sleeps and use wrist splintat night. Chronic condition exacerbated/progressive/side effects of treatment Goal:Resolution Data:unique tests ordered: unique tests reviewed:CBC, VitD, B12,ferritin,folateandPTHlevelsfromS2023 Plan: Ordered CPK, neurology consult, upper extremitynerve conduction testing 3.Frequent urination at night Pt reportsfrequenturination at night. Last PSA was more than 2 years ago. Chronic condition exacerbated/progressive/side effects of treatment Goal:Resolution Data:unique tests ordered: PSA _ Plan: Ordered PSA Attestation Preceptor Note: I saw the patient and confirmed the esteban portions of the history and physical exam. Discussed with the resident physician and agree with the above impression and plan. Advised to have close f/u with us and call with any concerns. 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 Exercise - Regular exercise [...] lymphoma Relationship: Brother, Age: 63 Years, Cause: NM, DM Immunizations Vaccine Date Status pneumococcal 20-valent conjugate vaccine 03/27/2022 Given zoster vaccine, inactivated 03/27/2022 Given SARS-CoV-2 mRNA-1273 (6y+ bivalent) 02/10/2022 Recorded Comments : 2022-03-27: Historical information-source unspecified SARS-CoV-2 mRNA (tozinameran 5y-11y) 07/18/2021 Recorded Comments : [facility] influenza virus vaccine, inactivated 01/23/2021 Given SARS-CoV-2 [...] due09/06/23and every 1year Due Adult COVID-19 Vaccination due12/15/23Unknown Frequency Adult Social Determinants of Health Screening due12/15/23Unknown Frequency Adult Tdap/Td Vaccine due12/15/23Unknown Frequency Hepatitis C Screening due12/15/23One-time only Shingles Vaccine due12/15/23One-time only Due In Future Colorectal Cancer Screening not due until03/12/24and every 10year Satisfied(in the past 1 year) Satisfied Body Mass Index on11/24/23.Satisfied by GRAEME Ortiz Paul Lipid Screening on07/16/23.Satisfied by Contributor_system, [employer] Electronic Signature on File Electronically Reviewed/Signed by: Liliya Graf DO Author Signature Dt/Tm:12/15/2023 12:35 PM Resident Department of Family Medicine Electronically Reviewed/Signed by: Devorah Mullen MD Cosigner Signature Dt/Tm: 12/15/2023 05:52 PM Department of Family Medicine [facility] Patient Care team information Care Team Personnel Name: MD Holliday Jonathan D Position: Physician - Family Med Member Role: Lifetime Relationship Address: [address] [place] [address] [place] Name: DO Serrano Franklin J Position: Physician - Family Med Member Role: Primary Care Provider Address: [address] [facility] [address] [place] [id number] Care Team Related Persons Name: MOOSE TORREZ Name: MOOSE TORREZ"
--- OUTSIDE RECORDS SUMMARY | 2024-04-02 06:06 | External Medical Summary | Continuity of Care Document ---
Author Name Unknown Organization [facility] [address] [facility] [address] Address [address] [place], [place] [id number] Care Team Providers Care Traffic Operations Engineer Name Role Phone Trevor Serrano Primary Care Physician [phone] [id number]/17[facility] - 12/17/23 [facility] [address] [facility] [facility] [address] [facility] [place], [place] [phone] Encounter Diagnosis Unspecified systolic (congestive) heart failure(Final) - Unspecified mononeuropathy of unspecified upper limb(Final) - Nocturia(Final) - Discharge Disposition: Home or Self Care Attending Physician: MD Herndon Christopher Referring Physician: MD Herndon Christopher Allergies, Adverse Reactions, Alerts No Known Allergies Immunizations Given and Recorded Vaccine Date Status [...] Historical information-source unspecified 2Result Comment: [facility] 3Result Comment: 2021-01-23: Historical information-source unspecified [...] bid, Disp# 180 tab, Refills: 3, Pharmacy: [id number] Start Date: 08/18/23 Status: Ordered Entresto 49 mg-51 mg oral tablet Start: 11/30/23 9:02:00 AM EDT, 1 tab, PO, bid, Disp# 180 tab, Refills: 3, Pharmacy: [id number] Start Date: 11/30/23 Status: Ordered multivitamin Start: 10/01/22 12:45:00 PM EDT, 1 tab, PO, Daily Start Date: 10/01/22 Status: Ordered pravastatin 20 mg oral tablet Start: 05/08/23 10:54:00 AM EST, 1 tab, PO, qhs, Disp# 90 tab, Refills: 3, Pharmacy: [id number] Start Date: 05/08/23 Status: Ordered traMADol 50 mg oral tablet Start: 11/18/23 11:33:00 AM EDT, See Instructions, Disp# 45 tab, Refills: 3, TAKE 1 TABLET BY MOUTH EVERY 8 HOURS NEEDED FOR PAIN, Pharmacy: [id number] Start Date: 11/18/23 Status: Ordered Tylenol Arthritis Caplet Start: 05/05/19 9:50:00 AM EST, 1,300 mg =, PO, q8h, PRN: pain Start Date: 05/05/19 Status: Ordered Vitamin D3 Start: 08/20/16 9:40:00 AM EDT, 2,000 Int_Unit =, PO, Daily Start Date: 08/20/16 Status: Ordered Problem List Condition Confirmation Course Effective Dates Status H ealth Status Informant Bradycardia Confirmed 10/02/23 Active Cardiomyopathy Confirmed 10/02/23 Active Chronic low back pain Confirmed Active CAD in [place] artery Confirmed Active Right foot drop Confirmed [...] weakness Confirmed Active Weight disorder Confirmed Active Procedures Procedure Date Related Diagnosis Body Site [...] stent placement. Results Laboratory List Name Date Creatine Kinase, Total (CK) 12/17/23 Most recent to oldest [Reference Range]: 1 CPK [39-308 unit/L] 71 unit/L (12/17/23 1:20 PM) Social History Social History Type Response Tobacco Former smoker, Cigar ettes, 1 per day. 40 year(s). Started age 22 Years. Stopped age 62 Years. Smoking Status Never smoked cigaret braden Sex Sex Representation Male (finding) Patient Care team information Care Team Personnel Name: MD Holliday Jonathan D Position: Physician - Family Med Member Role: Lifetime Relationship Address: [address] [place] [address] [place] Name: DO Serrano Franklin J Position: Physician - Family Med Member Role: Primary Care Provider Address: [address] [place] [address] [place] Care Team Related Persons Name: MOOSE TORREZ Name: MOOSE TORREZ
--- OUTSIDE RECORDS SUMMARY | 2024-04-02 06:06 | External Medical Summary | Continuity of Care Document ---
Author Name Unknown Organization [facility] [address] Address [address] [facility], [place] [id number] Care Team Providers Care Tube Repairer Name Role Phone Trevor Serrano Primary Care Physician [phone] [id number]s): 12/17/23 - 12/17/23 [facility] [address] [facility] [address] [facility] [facility] [address] [place], [place] [phone] Encounter Diagnosis Nocturia(Final) - Discharge Disposition: Home or Self Care Attending Physician: MD Mullen Dongsheng Referring Physician: MD Mullen Dongsheng Allergies, Adverse Reactions, Alerts No Known Allergies [...] live 09/19/15 Given tetanus/diphtheria/pertuss, acel (Tdap) 10/20/11 [facility] 1Result Comment: 2022-03-27: Historical information-source unspecified 2Result Comment: [facility] 3Result Comment: 2021-01-23: Historical [...] bid, Disp# 180 tab, Refills: 3, Pharmacy: [id number] Start Date: 08/18/23 Status: Ordered Entresto 49 mg-51 mg oral tablet Start: 11/30/23 9:02:00 AM EDT, 1 tab, PO, bid, Disp# 180 tab, Refills: 3, Pharmacy: [id number] Start Date: 11/30/23 Status: Ordered multivitamin Start: 10/01/22 12:45:00 PM EDT, 1 tab, PO, Daily Start Date: 10/01/22 Status: Ordered pravastatin 20 mg oral tablet Start: 05/08/23 10:54:00 AM EST, 1 tab, PO, qhs, Disp# 90 tab, Refills: 3, Pharmacy: [id number] Start Date: 05/08/23 Status: Ordered traMADol 50 mg oral tablet Start: 11/18/23 11:33:00 AM EDT, See Instructions, Disp# 45 tab, Refills: 3, TAKE 1 TABLET BY MOUTH EVERY 8 HOURS NEEDED FOR PAIN, Pharmacy: [id number] Start Date: 11/18/23 Status: [...] low back pain Confirmed Active CAD in [place] artery Confirmed Active Right foot drop Confirmed [...] stent placement. Results Laboratory List Name Date Prostate Specific Antigen (PSA, TOTAL) 1 Most recent to oldest [Reference Range]: 1 PSA, Total [<6.51 ng/mL] 1.08 ng/mL (12/17/23 1:23 PM) Social History Social History Type Response Tobacco Former smoker, Cigar ettes, 1 per day. 40 year(s). Started age 22 Years. Stopped age 62 Years. Smoking Status Never smoked cigaret braden Sex Sex Representation Male (finding) Patient Care team information Care Team Personnel Name: MD Holliday Jonathan D Position: Physician - Family Med Member Role: Lifetime Relationship Address: [address] [place] [address] Name: DO Serrano Franklin J Position: Physician - Family Med Member Role: Primary Care Provider Address: [address] [place] [address] [place] Care Team Related Persons Name: MOOSE TORREZ Name: MOOSE TORREZ
[2024-04-02 06:44] LABS: Basophils # (auto) 0.04 K/uL (0.00-0.20); Basophils % (auto) 0.4 %; Eosinophils # (auto) 0.07 K/uL (0.00-0.50); Eosinophils % (auto) 0.7 %; Hematocrit (blood only) 38.8 % (42.0-52.0); Hemoglobin 13.6 g/dl (14.0-18.0); Immature Granulocytes # (auto) 0.03 K/uL (0.01-0.20); Immature Granulocytes % (auto) 0.3 %; Lymphocytes # (auto) 1.81 K/uL (1.20-3.40); Lymphocytes % (auto) 18.8 %; Mean Corpuscular Hemoglobin 32.4 pg (25.0-34.0); Mean Corpuscular Hgb Conc 35.1 g/dL (32.0-36.0); Mean Corpuscular Volume 92.4 fL (80.0-100.0); Monocytes % (auto) 8.3 %; Neutrophils # (auto) 6.87 K/uL (1.40-6.50); Neutrophils % (auto) 71.5 %; Platelet Count 137 K/uL (130-400); RDW Coefficient of Variation 12.5 % (11.5-14.5); RDW Standard Deviation 42.5 fL (36.4-46.3); White Blood Count 9.62 K/ul (4.8-10.8)
[2024-04-02] MEDS: FUROSEMIDE 40 MG/4 ML VIAL IV ONE (06:58)
[2024-04-02 06:59] LABS: Albumin Level 4.3 gm/dl (3.4-5.0); BUN Creatinine Ratio 16.5 (10-20); Bilirubin,Total 1.2 mg/dl (0.2-1.0); Creatinine Clr Calc Pharmacy 82.9 ml/min; Globulin 2.2 gm/dl (2.5-4.0); Potassium 3.9 mmol/L (3.5-5.1); Total Protein 6.5 gm/dl (6.0-8.3)
[2024-04-02 07:05] LABS: Troponin I High Sensitivity 30.6 pg/ml (0-20)
[2024-04-02 07:07] LABS: INR 1.1 (0.9-1.1); Partial Thromboplastin Time 27 Seconds (21-31); Prothrombin Time 11.9 Seconds (9.0-12.0)
[2024-04-02] MEDS: NITROGLYCERIN 2% OINTMENT 30GM TUBE EXT ONE (07:07)
[2024-04-02] MEDS: carvediloL 12.5 MG TAB ONE (08:00)
--- NOTE | 2024-04-02 08:11 | XRay Report ---
XR chest 1V portable CLINICAL HISTORY: Chest pain, nonspecific COMPARISON STUDY: 11/15/2023 FINDINGS: There is stable mild cardiomegaly without pulmonary vascular congestion. No effusion, conso lidation, or pneumothorax. IMPRESSION: No acute findings. ACT 112: Negative or not required by law. Electronically signed by: Tyler Willoughby M.D. 04/02/2024 8:09 AM
[2024-04-02] MEDS: VALSARTAN/SACUBITRIL 51/49 MG TAB PO STA (08:19)
[2024-04-02] MEDS: carvediloL 6.25 MG TAB PO STA (08:19)
[2024-04-02] MEDS: MAGNESIUM SULFATE / D5W 1 GM/100 ML BAG IV STA (08:56)
--- NOTE | 2024-04-02 09:02 | Emergency Department Note ---
Impression & Plan Congestive heart failure ED Provider Note CHIEF COMPLAINT: Shortness of breath HISTORY OF PRESENT ILLNESS: This 68-year-old male patient with past medical history of coronary artery disease status post stent, hypertension, CHF and hypercholesterolemia presents to the emergency department with complaints of increasing shortness of breath over the last 12 to 24 hours. He states he is having difficulty taking a deep inspiration. This has happened twice in the past, once as when he ended up with the stent. The next time was after salty food several days prior. Patient denies having any recent illnesses, cough, fever. He follows with Dr. Kendall of cardiology. REVIEW OF SYSTEMS: A review of systems was performed with positives and pertinent negatives listed in the history of present illness. 10 systems were reviewed and are otherwise negative. ALLERGIES: see below MEDICATIONS: see below PMH: see below SOCIAL HISTORY: see below DDx: Acute coronary syndrome, cardiac arrhythmia, electrolyte abnormality, congestive heart failure, pneumonia, COPD exacerbation, pneumothorax among others. PHYSICAL EXAM: Vital signs reviewed. General: Well-appearing 68-year-old male, in no significant distress. HEENT: No scleral icterus, PERRLA, neck supple. MMM. Cardiovascular: Regular rate and rhythm with frequent ectopy, no extra sounds. Pulmonary: Clear to auscultation bilaterally, normal work of breathing. Abdomen: Soft, nontender, nondistended, positive bowel sounds. Musculoskeletal: Atraumatic, no peripheral edema. Neurologic: Patient awake alert and oriented x 3, speech is clear Skin: Warm, dry, no rash EMERGENCY DEPARTMENT COURSE/MDM: This patient was evaluated and appeared to be evidence of increased work of breathing, but no significant distress. IV access was obtained and laboratory work was drawn. Patient was placed on alarm security or surveillance monitor noted to be in a sinus rhythm with a first-degree AV block. EKG revealed nonspecific ST changes. Patient was medicated with 40 mg of IV Lasix and 1 inch of nitroglycerin paste. Laboratory work reveals a high-sensitivity troponin of 30 which is consistent with the patient's baseline. BNP is elevated at 2958. Chest x-ray was performed and reveals some mild congestion to my interpretation. He was placed on nasal cannula oxygen due to increased work of breathing and oxygen saturations around 91%. Patient did begin to diurese. They felt that the patient's best interest to be evaluated by the hospitalist service for further diuresis and evaluation. Patient expressed understanding of the findings and plan and agreed. MONITORING: An order for cardiac monitoring was placed and the patient is noted to be in a sinus rhythm with a first-degree AV block at 79 beats per minute. RADIOLOGY: Chest x-ray to my interpretation reveals mild congestive changes, no focal lung consolidation. EKG: To my interpretation reveals a sinus rhythm with a first-degree AV block at 76 bpm, frequent PVCs. Nonspecific ST changes. Prolonged QT interval at 483. DISPOSITION: Admission Past Med/Surg History Problem List (Updated 04/05/24 @ 06:07 by Miya Tapia MD) Congestive heart failure (Acute) CAD (coronary artery disease), standing rock coronary artery s/p JOVITA to mid LAD. HTN (hypertension) Acute combined systolic (congestive) and diastolic (congestive) heart failure Medical History Acute systolic CHF (congestive heart failure) Cardiomyopathy EF 15-20% on 2018 admission for CHF. Kidney stones Hx of congestive heart failure Acute combined systolic/diastolic, 2018. Irregular heart beat "EXTRA BEAT" FOLLOWS WITH DR. KENDALL Hypertension Surgical History History of total hip arthroplasty RT Fusion of spine LUMBAR FUSION History of colonoscopy History of tooth extraction History of nasal septoplasty History of heart artery stent 1 JOVITA STENT INSERTED, 08/2017 AT [facility] Family History Mother Family history of diabetes mellitus Grandfather (Maternal) Family hx of colon cancer Social History Smoking Status: Never smoker Tobacco Type: Cigarettes Second Hand Exposure: Yes; Do You Dip or Chew Tobacco: No; Hx Alcohol Use: No Hx Substance Use: No Preferred Language: Slovak Communication Ability: Effective Permit Specialist Required: No Beliefs That Will Affect Care: None Current Living Situation: Spouse Current Living Situation Comment: with Feels Safe at Home: Yes Assistive Devices: None Allergies Allergies Allergy/AdvReac Type Severity Reaction Status Date / Time No Known Allergies Allergy Mild Verified 04/02/24 09:12 Home Meds Home Medications Medication Instructions Recorded Confirmed aspirin 81 mg tablet,delayed 81 mg PO QAM 03/19/20 01/25/25 release sacubitril 49 mg-valsartan 51 mg 1 tab PO BID 05/26/19 04/02/24 tablet (Entresto) calcium 600 mg (as 1 tab PO DAILY 11/15/23 04/02/24 carbonate)-vitamin D3 10 mcg (400 unit) tablet (Calcium 600 + D(3)) carvedilol 6.25 mg tablet 6.25 mg PO BID 11/15/23 04/02/24 coQ10 (ubiquinol) 100 mg capsule 100 mg PO BID 11/15/23 04/02/24 multivitamin 1 tab PO QAM 11/15/23 04/02/24 pravastatin 20 mg tablet 20 mg PO HS 11/15/23 04/02/24 tramadol 50 mg tablet 50 mg PO Q8H PRN Pain 11/15/23 04/02/24 Previous Rx's Medication Instructions Recorded furosemide 20 mg tablet 20 - 40 mg (1 - 2 x 20 mg) PO 04/04/24 DAILY PRN weight gain #60 tabs Results & Data (ED) Vital Signs Vital Signs - 24 hr 04/02/24 06:08 04/02/24 06:18 04/02/24 06:20 Temperature 36.6 C Temperature Source Temporal Artery Scan Pulse Rate 92 H 86 Pulse Rate [Apical] Pulse Rate from SpO2 Sensor Respiratory Rate 18 Respiratory Effort / Characteristics Non-Labored Spontaneous Respiratory Depth Normal Respiratory Pattern Regular Blood Pressure 163/100 H Blood Pressure [Right Arm] Blood Pressure Mean 121 Blood Pressure Mean [Right Arm] Blood Pressure Position Sitting Pulse Oximetry 95 Oxygen Delivery Method Room Air Room Air Oxygen Flow Rate Sepsis Recent Fever Within 48 Hours No Sepsis New/Unexplained Change in Mental Status N/A Sepsis Action Taken by Nursing No Action Required Oxygen Flow Rate - Titration Pulse Oximetry Post Tiitration 04/02/24 06:33 04/02/24 07:00 04/02/24 07:03 Temperature Temperature Source Pulse Rate 82 79 86 Pulse Rate [Apical] Pulse Rate from SpO2 Sensor 67 82 Respiratory Rate 21 Respiratory Effort / Characteristics Respiratory Depth Respiratory Pattern Blood Pressure 141/98 H 153/91 H Blood Pressure [Right Arm] Blood Pressure Mean 112 111 Blood Pressure Mean [Right Arm] Blood Pressure Position Pulse Oximetry 95 91 94 Oxygen Delivery Method Oxygen Flow Rate Sepsis Recent Fever Within 48 Hours Sepsis New/Unexplained Change in Mental Status Sepsis Action Taken by Nursing Oxygen Flow Rate - Titration Pulse Oximetry Post Tiitration 04/02/24 07:14 04/02/24 07:16 04/02/24 07:21 Temperature Temperature Source Pulse Rate 79 Pulse Rate [Apical] Pulse Rate from SpO2 Sensor 77 Respiratory Rate Respiratory Effort / Characteristics Respiratory Depth Respiratory Pattern Blood Pressure 138/81 Blood Pressure [Right Arm] Blood Pressure Mean 102 Blood Pressure Mean [Right Arm] Blood Pressure Position Pulse Oximetry 91 97 Oxygen Delivery Method Nasal Cannula Oxygen Flow Rate Sepsis Recent Fever Within 48 Hours Sepsis New/Unexplained Change in Mental Status Sepsis Action Taken by Nursing Oxygen Flow Rate - Titration 2 Pulse Oximetry Post Tiitration 96 04/02/24 07:33 04/02/24 07:42 04/02/24 07:47 Temperature Temperature Source Pulse Rate 75 81 Pulse Rate [Apical] Pulse Rate from SpO2 Sensor 80 Respiratory Rate Respiratory Effort / Characteristics Respiratory Depth Respiratory Pattern Blood Pressure 159/75 H Blood Pressure [Right Arm] Blood Pressure Mean 93 Blood Pressure Mean [Right Arm] Blood Pressure Position Pulse Oximetry 98 Oxygen Delivery Method Oxygen Flow Rate Sepsis Recent Fever Within 48 Hours Sepsis New/Unexplained Change in Mental Status Sepsis Action Taken by Nursing Oxygen Flow Rate - Titration Pulse Oximetry Post Tiitration 04/02/24 07:48 04/02/24 08:01 04/02/24 08:06 Temperature Temperature Source Pulse Rate 88 85 Pulse Rate [Apical] Pulse Rate from SpO2 Sensor 82 62 Respiratory Rate Respiratory Effort / Characteristics Respiratory Depth Respiratory Pattern Blood Pressure 122/70 Blood Pressure [Right Arm] Blood Pressure Mean 91 Blood Pressure Mean [Right Arm] Blood Pressure Position Pulse Oximetry 97 97 Oxygen Delivery Method Oxygen Flow Rate Sepsis Recent Fever Within 48 Hours Sepsis New/Unexplained Change in Mental Status Sepsis Action Taken by Nursing Oxygen Flow Rate - Titration Pulse Oximetry Post Tiitration 04/02/24 08:15 04/02/24 08:22 04/02/24 08:36 Temperature Temperature Source Pulse Rate 91 H 70 Pulse Rate [Apical] Pulse Rate from SpO2 Sensor 80 Respiratory Rate Respiratory Effort / Characteristics Respiratory Depth Respiratory Pattern Blood Pressure 140/95 Blood Pressure [Right Arm] Blood Pressure Mean 98 Blood Pressure Mean [Right Arm] Blood Pressure Position Pulse Oximetry 98 Oxygen Delivery Method Oxygen Flow Rate Sepsis Recent Fever Within 48 Hours Sepsis New/Unexplained Change in Mental Status Sepsis Action Taken by Nursing Oxygen Flow Rate - Titration Pulse Oximetry Post Tiitration 04/02/24 08:42 04/02/24 08:54 04/02/24 08:56 Temperature Temperature Source Pulse Rate 78 84 Pulse Rate [Apical] 79 Pulse Rate from SpO2 Sensor Respiratory Rate 19 20 Respiratory Effort / Characteristics Non-Labored Spontaneous Respiratory Depth Normal Respiratory Pattern Regular Blood Pressure Blood Pressure [Right Arm] 121/74 Blood Pressure Mean Blood Pressure Mean [Right Arm] 89 Blood Pressure Position Pulse Oximetry 97 95 Oxygen Delivery Method Nasal Cannula Oxygen Flow Rate 2 Sepsis Recent Fever Within 48 Hours Sepsis New/Unexplained Change in Mental Status Sepsis Action Taken by Nursing Oxygen Flow Rate - Titration Pulse Oximetry Post Tiitration Home Medications Current Medication List: was personally reviewed by me Laboratory Data Attestation: I reviewed the patient's lab results. 04/03/24 05:55 04/03/24 16:29 Lab Results 04/02/24 04/02/24 Range/Units 06:20 08:14 WBC 9.62 (4.8-10.8) K/ul RBC 4.20 L (4.70-6.10) M/uL Hgb 13.6 L (14.0-18.0) g/dl Hct 38.8 L (42.0-52.0) % MCV 92.4 (80.0-100.0) fL MCH 32.4 (25.0-34.0) pg MCHC 35.1 (32.0-36.0) g/dL RDW Std Deviation 42.5 (36.4-46.3) fL RDW Coeff of Jorge 12.5 (11.5-14.5) % Plt Count 137 (130-400) K/uL MPV 10.0 (9.4-12.4) fL Immature Gran % (Auto) 0.3 % Neut % (Auto) 71.5 % Lymph % (Auto) 18.8 % [place] % (Auto) 8.3 % Eos % (Auto) 0.7 % Baso % (Auto) 0.4 % Neut # (Auto) 6.87 H (1.40-6.50) K/uL Lymph # (Auto) 1.81 (1.20-3.40) K/uL [place] # (Auto) 0.80 H (0.11-0.59) K/uL Eos # (Auto) 0.07 (0.00-0.50) K/uL Baso # (Auto) 0.04 (0.00-0.20) K/uL Immature Gran # (Auto) 0.03 (0.01-0.20) K/uL PT 11.9 (9.0-12.0) Seconds INR 1.1 (0.9-1.1) APTT 27 (21-31) Seconds PTT Ratio 1.0 Sodium 140 (136-145) mmol/L Potassium 3.9 (3.5-5.1) mmol/L Chloride 109 H (98-107) mmol/L Carbon Dioxide 24 (21-32) mmol/L Anion Gap 7 (3-11) BUN 15 (6-23) mg/dl Creatinine 0.91 (0.6-1.4) mg/dl Est Cr Clr Drug Dosing 82.9 ml/min eGFR 90.67 BUN/Creatinine Ratio 16.5 (10-20) Glucose 122 H (70-99(Fasting)) mg/dl Calcium 9.0 (8.6-10.3) mg/dl Magnesium 1.8 (1.7-2.4) mg/dl Total Bilirubin 1.2 H (0.2-1.0) mg/dl AST 46 H (13-39) U/L ALT 66 H (7-52) U/L Alkaline Phosphatase 55 (34-104) U/L Troponin I High Sens 30.6 H 30.2 H (0-20) pg/ml B-Natriuretic Peptide 2958 H (0-100) pg/ml Total Protein 6.5 (6.0-8.3) gm/dl Albumin 4.3 (3.4-5.0) gm/dl Globulin 2.2 L (2.5-4.0) gm/dl Albumin/Globulin Ratio 2.0 (0.9-2) Administered Medications Discontinued Medications Aspirin (Aspirin 81 Mg Ectab) 81 mg PO QAM [facility] Stop: 05/03/24 08:59 Last Admin: 04/04/24 07:50 Dose: 81 mg Documented By: Admin: 04/03/24 08:15 Dose: 81 mg Documented By: RUDY Carvedilol (Carvedilol 6.25 Mg Tab) 6.25 mg PO NOW STA Stop: 04/02/24 07:15 Last Admin: 04/02/24 08:19 Dose: 6.25 mg Documented By: LENA Carvedilol (Carvedilol 12.5 Mg Tab) Confirm Administered Dose 12.5 mg .ROUTE .STK-MED ONE Stop: 04/02/24 08:00 Last Admin: 04/02/24 08:00 Dose: Not Given Documented By: LENA Carvedilol (Carvedilol 3.125 Mg Tab) 3.125 mg PO BID ETHAN Stop: 05/02/24 20:59 Last Admin: 04/04/24 07:50 Dose: 3.125 mg Documented By: Admin: 04/03/24 21:08 Dose: 3.125 mg Documented By: Admin: 04/03/24 08:15 Dose: 3.125 mg Documented By: Admin: 04/02/24 21:15 Dose: 3.125 mg Documented By: CAESAR Enoxaparin Sodium (Enoxaparin Inj 40 Mg/0.4 Ml Syr) 40 mg SQ Q24H ETHAN Stop: 05/03/24 08:59 Last Admin: 04/04/24 07:50 Dose: 40 mg Documented By: Admin: 04/03/24 08:18 Dose: Not Given Documented By: RUDY Enoxaparin Sodium (Enoxaparin Inj 40 Mg/0.4 Ml Syr) 40 mg SQ ONE STA Stop: 04/02/24 09:59 Last Admin: 04/02/24 11:41 Dose: 40 mg Documented By: MANPREET Furosemide (Furosemide 40 Mg/4 Ml Vial) 40 mg IV ONE ONE Stop: 04/02/24 06:52 Last Admin: 04/02/24 06:58 Dose: 40 mg Documented By: LENA Furosemide (Furosemide Inj 20 Mg/2 Ml Vial) 20 mg IV ONE ONE Stop: 04/02/24 16:01 Last Admin: 04/02/24 15:35 Dose: 20 mg Documented By: MANPREET Furosemide (Furosemide Inj 20 Mg/2 Ml Vial) 20 mg IV ONE ONE Stop: 04/02/24 19:10 Last Admin: 04/02/24 19:51 Dose: 20 mg Documented By: CAESAR Furosemide (Furosemide 40 Mg/4 Ml Vial) 40 mg IV ONE ONE Stop: 04/03/24 08:19 Last Admin: 04/03/24 08:44 Dose: 40 mg Documented By: RUDY Furosemide (Furosemide Inj 20 Mg/2 Ml Vial) 20 mg IV ONE ONE Stop: 04/03/24 18:17 Last Admin: 04/03/24 18:38 Dose: 20 mg Documented By: RUDY Furosemide (Furosemide 40 Mg/4 Ml Vial) 40 mg IV ONE ONE Stop: 04/04/24 08:36 Last Admin: 04/04/24 10:16 Dose: 40 mg Documented By: HEATH Magnesium Sulfate/Dextrose (Magnesium Sulfate / D5w) 1 gm in 100 mls @ 100 mls/hr IV NOW STA Stop: 04/02/24 09:47 Last Infusion: 04/02/24 10:17 Dose: Infused Documented By: Admin: 04/02/24 08:56 Dose: 100 mls/hr Documented By: LENA Ioversol (Optiray 320 125ml) 118 ml IV ONCE ONE Stop: 04/03/24 04:26 Last Admin: 04/03/24 04:26 Dose: 118 ml Documented By: KRISTINA Nitroglycerin (Nitroglycerin 2% Ointment 30gm Tube) 1 inch EXT NOW ONE Stop: 04/02/24 07:04 Last Admin: 04/02/24 07:07 Dose: 1 inch Documented By: LENA Potassium Chloride (Potassium Chloride Crtab 20 Meq Tabcr) 40 meq PO QA ETHAN Stop: 05/02/24 13:14 Last Admin: 04/04/24 07:55 Dose: 40 meq Documented By: Admin: 04/03/24 08:16 Dose: 40 meq Documented By: Admin: 04/02/24 15:35 Dose: 40 meq Documented By: MANPREET Potassium Chloride (Potassium Chloride Crtab 20 Meq Tabcr) 40 meq PO NOW STA Stop: 04/03/24 08:19 Last Admin: 04/03/24 08:43 Dose: 40 meq Documented By: RUDY Pravastatin Sodium (Pravastatin Sod 20 Mg Tab) 20 mg PO HS [facility] Stop: 05/02/24 20:59 Last Admin: 04/03/24 21:08 Dose: 20 mg Documented By: Admin: 04/02/24 21:15 Dose: 20 mg Documented By: CAESAR Sacubitril/Valsartan (Valsartan/Sacubitril 51/49 Mg Tab) 1 tab PO NOW STA Stop: 04/02/24 07:16 Last Admin: 04/02/24 08:19 Dose: 1 tab Documented By: LENA Sacubitril/Valsartan (Valsartan/Sacubitril 26/24mg Tab) 1 tab PO BID ETHAN Stop: 05/02/24 20:59 Last Admin: 04/04/24 07:50 Dose: 1 tab Documented By: Admin: 04/03/24 21:09 Dose: 1 tab Documented By: Admin: 04/03/24 08:15 Dose: 1 tab Documented By: Admin: 04/02/24 21:14 Dose: 1 tab Documented By: MMG Imaging Data Radiologist's Impression: Chest X-Ray 04/02/24 06:22 XR chest 1V portable CLINICAL HISTORY: Chest pain, nonspecific COMPARISON STUDY: 11/15/2023 FINDINGS: There is stable mild cardiomegaly without pulmonary vascular congestion. No effusion, consolidation, or pneumothorax. IMPRESSION: No acute findings. ACT 112: Negative or not required by law. Electronically signed by: Tyler Willoughby M.D. 04/02/2024 8:09 AM Discharge Plan Visit Data Chief Complaint: Shortness of Breath/Dyspnea Stated Complaint: CONGESTIVE HEART FAILURE,EPISODE ED Provider: Miya Tapia Discharge Problem: Congestive heart failure Patient Disposition: Admitted As Inpatient Discharge Instructions Interventions: ED Discharge Assessment Last Done: 04/02/24 10:18
[2024-04-02] MEDS ORDERED: ONDANSETRON INJ 2 MG/ML 2 ML VIAL IV PRN (09:37)
[2024-04-02] MEDS ORDERED: ACETAMINOPHEN 325 MG TAB PO PRN (09:37)
--- NOTE | 2024-04-02 09:51 | History & Physical Report ---
<Statement entered by Dione Dixon MD - 04/02/24 20:04> 68-year-old man with chronic systolic heart failure presents with acute on chronic HFrEF. his primary vinyl flooring installer is Dr. Montgomery he does endorse a salt load about 5 days ago when he had a roasted chicken, noticed his weight going up by at least 3 pounds this week, since then progressive dyspnea, PND/orthopnea, became severe since yesterday. chest x-ray clear BNP almost 3000. no significant change in his EKG from previous and high-sensitivity troponin was 30 my exam he has distant breath sounds posteriorly bilaterally with distant crackles throughout, no wheezing, comfortable work of breathing, I do not see any JVD. minimal lower extremity edema I reviewed the repeat echocardiogram today with vinyl flooring installer and there are no changes from the last study November 2023 acute on chronic HFpEF TTE 04/02 with EF 35% and mild mild mitral regurgitation, unchanged by verbal report, formal report pending he had a robust response to 40 mg of IV Lasix given in the ED with greater than 1200 mL urine output he did not appear significantly volume overloaded on exam so I ordered 20 mg IV Lasix for this afternoon reassess in a.m. Early evening he complained of recurrent severe dyspnea ordered repeat dose of Lasix 20 mg IV I dose reduced his carvedilol and Entresto by 50% to allow for diuresis follow ins and outs and daily weights, note that the weight of 170 pounds it was recorded in the EMR is grossly inaccurate a.m. CBC and BMP if dyspnea not improving with diuresis, consider alternate diagnosis such as PE. Chest x-ray was clear. normal white blood count with a left shifted. does not look like pneumonia but it is possible. he will follow-up with Dr. Montgomery, he will need PRN lasix dosing based on weight and symptoms Date of Service April 02, 2024 Assessment & Plan (1) Acute systolic CHF (congestive heart failure): (2) CAD (coronary artery disease), [place] coronary artery: (3) HTN (hypertension): Plan This is a 68-year-old gentleman with past medical history of CHF, CAD, s/p stent placement in 2018 who presented to the emergency department on 04/02/2024 with a chief complaint of dyspnea. Patient follows w/ Dr. Montgomery outpatient and reports his last office visit was in the summer. #acute on chronic systolic HF/CAD BNP elevated at 2958 trop 30.6 w/ repeat 30.2 EKG on admission w/ prolonged QT and PVCs, sinus rhythm w/ 1st degree AV block. CXR negative Last echo 11/2023 - LVEF 35%, mild mitral regurgitation. Updated echo pending CBC w/o leukocytosis, hgb 13.6 BMP w/ stable renal function and electrolytes - monitor closely and replete electrolytes as necessary w/ aggressive diuresis Mag 1.8 on admission - s/p 1g IV mag by ED. s/p 40mg IV Lasix in ED - continue 40mg IV Lasix BID consider continuing a diuretic regimen outpatient on discharge. Ensure patient has cardiology follow up on discharge. On 2L of oxygen w/ O2 sat of 97% - wean if possible back to room air Continue chronic medications for CAD/CHF including carvedilol, pravastatin, and Entresto. DVT prophylaxis: Lovenox Code: full Case was discussed with Dr. Dixon at time of admission. History of Present Illness Primary Care Provider: Trevor Serrano DO This is a 68-year-old gentleman with past medical history of CHF, CAD, s/p stent placement in 2018 who presented to the emergency department on 04/02/2024 with a chief complaint of dyspnea. While in the emergency department patient was found to have a severely elevated BNP of 3000, negative chest x-ray. EKG was with ST depressions/T WI's in inferior lateral leads and lots of PVCs, widened QRS, and QTc of 480. Troponin 30. He was given 40 mg IV Lasix, 1 inch Nitropaste, his carvedilol and Entresto. The patient was seen and examined this morning. Patient reports that yesterday morning he started to develop shortness of breath. Over the course of yesterday and overnight he noticed that the shortness of breath was worsening. He denies any excessive coughing. He states that he does have a dry cough in the wintertime. He denies any chest pain. He denies nausea, vomiting, abdominal pain. Denies any lower extremity edema. Denies any urinary symptoms. Patient does report that after he was given IV Lasix and placed on oxygen he does feel much improved. Allergies Allergy/AdvReac Type Severity Reaction Status Date / Time No Known Allergies Allergy Mild Verified 04/02/24 09:12 Home Medications Medication Instructions Recorded Confirmed Type aspirin 81 mg tablet,delayed 81 mg PO QAM 05/26/19 04/02/24 History release sacubitril 49 mg-valsartan 51 mg 1 tab PO BID 05/26/19 04/02/24 History tablet (Entresto) calcium 600 mg (as 1 tab PO DAILY 11/15/23 04/02/24 History carbonate)-vitamin D3 10 mcg (400 unit) tablet (Calcium 600 + D(3)) carvedilol 6.25 mg tablet 6.25 mg PO BID 11/15/23 04/02/24 History coQ10 (ubiquinol) 100 mg capsule 100 mg PO BID 11/15/23 04/02/24 History multivitamin 1 tab PO QAM 11/15/23 04/02/24 History pravastatin 20 mg tablet 20 mg PO HS 11/15/23 04/02/24 History tramadol 50 mg tablet 50 mg PO Q8H PRN Pain 11/15/23 04/02/24 History Past Med/Surg History Problem List CAD (coronary artery disease), [place] coronary artery s/p JOVITA to mid LAD. HTN (hypertension) Acute combined systolic (congestive) and diastolic (congestive) heart failure Medical History Acute systolic CHF (congestive heart failure) Cardiomyopathy EF 15-20% on 2018 admission for CHF. Kidney stones Hx of congestive heart failure Acute combined systolic/diastolic, 2018. Irregular heart beat "EXTRA BEAT" FOLLOWS WITH DR. MONTGOMERY Hypertension Surgical History History of total hip arthroplasty RT Fusion of spine LUMBAR FUSION History of colonoscopy History of tooth extraction History of nasal septoplasty History of heart artery stent 1 JOVITA STENT INSERTED, 08/2017 AT [facility] Family History Mother Family history of diabetes mellitus Grandfather (Maternal) Family hx of colon cancer Social History Smoking Status: Never smoker Tobacco Type: Cigarettes Second Hand Exposure: Yes; Do You Dip or Chew Tobacco: No; Hx Alcohol Use: Yes Alcohol type: beer Hx Substance Use: No Preferred Language: Polish Communication Ability: Effective Air Quality Specialist Required: No Beliefs That Will Affect Care: None Current Living Situation: Spouse Current Living Situation Comment: with Feels Safe at Home: Yes Assistive Devices: Glasses Physical Exam Constitutional: WD/WN, vitals as above Respiratory: CTA b/l Cardiovascular: RRR, no murmur, no edema Gastrointestinal (Abdomen): normal bowel sounds, soft, nontender, no hepatosplenomegaly Psychiatric: A+Ox3, euthymic affect Results & Data Results & Data Vital Signs (Past 12 Hours) Vital Signs Temp Pulse Pulse Resp BP BP Pulse Ox 04/02/24 09:31 116/73 04/02/24 09:27 71 96 04/02/24 09:12 91 H 96 04/02/24 09:00 76 96 04/02/24 09:00 108/63 04/02/24 08:56 121/74 04/02/24 08:56 79 20 121/74 95 04/02/24 08:54 84 19 97 04/02/24 08:42 78 04/02/24 08:36 70 04/02/24 08:22 140/95 04/02/24 08:15 91 H 98 04/02/24 08:06 85 97 04/02/24 08:01 122/70 04/02/24 07:48 88 97 04/02/24 07:47 159/75 H 04/02/24 07:42 81 98 04/02/24 07:33 75 04/02/24 07:21 79 97 04/02/24 07:16 138/81 04/02/24 07:14 91 04/02/24 07:03 86 94 04/02/24 07:00 79 21 153/91 H 91 04/02/24 06:33 82 141/98 H 95 04/02/24 06:20 04/02/24 06:18 86 04/02/24 06:08 36.6 C 92 H 18 163/100 H 95 O2 Del Method O2 Flow Rate 04/02/24 09:31 04/02/24 09:27 04/02/24 09:12 04/02/24 09:00 04/02/24 09:00 04/02/24 08:56 04/02/24 08:56 Nasal Cannula 2 04/02/24 08:54 04/02/24 08:42 04/02/24 08:36 04/02/24 08:22 04/02/24 08:15 04/02/24 08:06 04/02/24 08:01 04/02/24 07:48 04/02/24 07:47 04/02/24 07:42 04/02/24 07:33 04/02/24 07:21 04/02/24 07:16 04/02/24 07:14 Nasal Cannula 04/02/24 07:03 04/02/24 07:00 04/02/24 06:33 04/02/24 06:20 Room Air 04/02/24 06:18 04/02/24 06:08 Room Air Code Status & VTE Plan VTE Prophylaxis Plan VTE Prophylaxis will be ordered: Yes PG Care Time/CCT Total # of Minutes Spent Total Time Spent with Patient: Total time spent is greater than 50% in coordination of care (as documented) at patient's floor/unit and/or counseling patient: Coding Level of Care Code 01738 INT INP/OBS CARE MIN Diagnoses Acute systolic CHF (congestive heart failure) I50.21 CAD (coronary artery disease), [place] coronary artery I25.10 HTN (hypertension) I10
[2024-04-02] MEDS ORDERED: traMADol HCL 50 MG TABLET PO PRN (10:51)
--- NOTE | 2024-04-02 11:27 | Electrocardiogram Report ---
Test Reason : Blood Pressure : */* mmHG Vent. Rate : 88 BPM Atrial Rate : 88 BPM P-R Int : 226 ms QRS Dur : 116 ms QT Int : 404 ms P-R-T Axes : 79 60 261 degrees QTcB Int : 488 ms Sinus rhythm with 1st degree A-V block with frequent Premature ventricular complexes in a pattern of bigeminy Prolonged QT Abnormal ECG When compared with ECG of 15-Nov-2023 14:44, Inverted T waves have replaced nonspecific T wave abnormality in Inferior leads Confirmed by Lea Lewis (Yonathan) on 04/02/2024 11:26:49 AM Referred By: Confirmed By: Lea Lewis
--- NOTE | 2024-04-02 11:31 | Electrocardiogram Report ---
Test Reason : Blood Pressure : */* mmHG Vent. Rate : 76 BPM Atrial Rate : 76 BPM P-R Int : 232 ms QRS Dur : 112 ms QT Int : 430 ms P-R-T Axes : 68 60 232 degrees QTcB Int : 483 ms Sinus rhythm with 1st degree A-V block with frequent Premature ventricular complexes Prolonged QT Abnormal ECG When compared with ECG of 02-Apr-2024 06:16, (unconfirmed) No significant change was found Confirmed by Lea Lewis ([id number]) on 04/02/2024 11:31:05 AM Referred By: REFERRED SELF Confirmed By: Lea Lewis
[2024-04-02] MEDS: ENOXAPARIN INJ 40 MG/0.4 ML SYR SQ STA (11:41)
[2024-04-02] MEDS: FUROSEMIDE INJ 20 MG/2 ML VIAL IV ONE ×2 (15:35→19:51)
[2024-04-02] MEDS: POTASSIUM CHLORIDE CRTAB 20 MEQ TABCR PO SCH (15:35)
[2024-04-02] MEDS ORDERED: FUROSEMIDE 40 MG/4 ML VIAL IV SCH (17:00)
[2024-04-02] MEDS ORDERED: VALSARTAN/SACUBITRIL 51/49 MG TAB PO SCH (21:00)
[2024-04-02] MEDS ORDERED: carvediloL 6.25 MG TAB PO SCH (21:00)
[2024-04-02] MEDS: VALSARTAN/SACUBITRIL 26/24MG TAB PO SCH (21:14)
[2024-04-02] MEDS: PRAVASTATIN SOD 20 MG TAB PO SCH (21:15)
[2024-04-02] MEDS: carvediloL 3.125 MG TAB PO SCH (21:15)
[2024-04-03] MEDS: OPTIRAY 320 125ml IV ONE (04:26)
--- NOTE | 2024-04-03 05:31 | CT Scan Report ---
EXAM: CT angio chest PE protocol CLINICAL HISTORY: Shortness of breath. Rule out pulmonary embolism. TECHNIQUE: Contiguous 3.[address] angiographic images of the chest were acquired with the administration of intravenous contrast. Coronal and sagittal reconstructions were obtained. 118 cc's of Optiray 320 was administered for post-contrast images. One of these 3D techniques was utilized: Maximum Intensity Pixel (MIP), 3D Reconstructed Images, Volume Rendered Images, Surface Shaded Rendering. One of the following dose reduction techniques were utilized for this exam: Automated exposure control, adjustment of the mA and/or kV according to patient size, and use of iterative reconstruction. CTDI: 45.4 mGy, DLP: 836.08 mGy-cm. COMPARISON: None. FINDINGS: Pulmonary Arteries: Pulmonary arteries are normal in size and opacification. No evidence of pulmonary embolism. No stenosis or filling defects. Mediastinum: No mediastinal mass or lymphadenopathy. Normal appearance of the thymus. Heart: Normal size and morphology of the heart. No pericardial effusion. Lungs: A few scattered air containing benign pulmonary cysts. No evidence of consolidation, nodules, or masses. No pleural effusion or thickening. Bones: No fractures or lytic/sclerotic lesions of the visualized bony structures. Thoracic spondylosis with osteoporotic bones and multilevel partially collapsed vertebrae. Soft Tissues: Normal appearance of the visualized soft tissues. No abnormal masses or fluid collections. Atherosclerotic aortic, celiac, and splenic arterial calcifications. Incidental finding: An 18 mm hypodense hepatic lesion in segment V. For further assessment. Left adrenal hypodense lesion measuring 2.2 cm with a mean density of -0.65HU, suggestive of an adenoma. IMPRESSION: 1. Normal CT pulmonary angiography of the chest. No evidence of pulmonary embolism 2. A few scattered air containing benign pulmonary cysts. 3. Incidental findings: An 18 mm hypodense hepatic lesion in segment V. Clinical correlation and triphasic CT scan are advised. 4. Left adrenal hypodense lesion measuring 2.2 cm with a mean density of -0.65HU, suggestive of an adrenal adenoma. Electronically signed by Jewel Chapman 04-03-2024 05:30 AM
[2024-04-03 07:03] LABS: Hematocrit (blood only) 36.3 % (42.0-52.0); Hemoglobin 13.1 g/dl (14.0-18.0); Mean Corpuscular Hemoglobin 32.9 pg (25.0-34.0); Mean Corpuscular Hgb Conc 36.1 g/dL (32.0-36.0); Mean Corpuscular Volume 91.2 fL (80.0-100.0); Mean Platelet Volume 10.2 fL (9.4-12.4); Platelet Count 120 K/uL (130-400); RDW Coefficient of Variation 12.4 % (11.5-14.5); RDW Standard Deviation 41.3 fL (36.4-46.3); Red Blood Count 3.98 M/uL (4.70-6.10); White Blood Count 6.39 K/ul (4.8-10.8)
[2024-04-03 07:26] LABS: Albumin Level 3.9 gm/dl (3.4-5.0); BUN Creatinine Ratio 18.9 (10-20); Bilirubin Direct 0.2 mg/dl (0-0.2); Bilirubin,Total 1.1 mg/dl (0.2-1.0); Calcium 8.7 mg/dl (8.6-10.3); Creatinine Clr Calc Pharmacy 79.4 ml/min; Magnesium 1.9 mg/dl (1.7-2.4); Potassium 3.5 mmol/L (3.5-5.1); Total Protein 6.1 gm/dl (6.0-8.3)
[2024-04-03] MEDS: ASPIRIN 81 MG ECTAB PO SCH (08:15)
--- NOTE | 2024-04-03 08:17 | Hospitalist Progress Note ---
Date of Service April 03, 2024 Assessment & Plan (1) Acute systolic CHF (congestive heart failure): (2) CAD (coronary artery disease), [place] coronary artery: (3) HTN (hypertension): Plan 68-year-old man with chronic systolic heart failure presents with acute on chronic HFrEF. his primary slurry control operator helper is Dr. Montgomery he does endorse a salt load about 5 days ago when he had a roasted chicken, noticed his weight going up by at least 3 pounds this week, since then progressive dyspnea, PND/orthopnea, became severe since yesterday. chest x-ray clear BNP almost 3000. no significant change in his EKG from previous and high-sensitivity troponin was 30 # acute on chronic HFpEF TTE 04/02 with EF 25-35% severely dilated LV with akinetic segments, grade 2 diastolic dysfunction, ok valves. unchanged from 11/30 per my conversation with the slurry control operator helper Has had robust response to diuresis with IV lasix 40 bid. Does not grossly look volume overloaded at this time but persistent dyspnea and some crackles. -afternoon BMP with some mild increase in CR, electrolytes okay. BNP 3000-->1500 -ordered afternoon dose of lasix 20 mg IV -AM labs - anticipate he's pretty dry I dose reduced his carvedilol and Entresto by 50% to allow for diuresis follow ins and outs and daily weights, note that the weight of 170 pounds it was recorded in the EMR is grossly inaccurate so unclear if weight decreased overnight if dyspnea not improving with diuresis, consider alternate diagnosis such as PE. Chest x-ray was clear. normal white blood count with a left shifted. does not look like pneumonia but it is possible. he will follow-up with Dr. Montgomery, he will need PRN lasix dosing based on weight and symptoms DVT ppx - enoxaparin Incidental findings needing follow up: 3. Incidental findings: An 18 mm hypodense hepatic lesion in segment V. Clinical correlation and triphasic CT scan are advised. 4. Left adrenal hypodense lesion measuring 2.2 cm with a mean density of -0.65HU, suggestive of an adrenal adenoma. Admission and Anticipated Discharge Date Admission Date: April 02, 2024 Subjective shortness of breath has significantly improved since admission and better than yesterday however continues to have increased dyspnea compared to baseline he does not have any leg edema today, no wheezing, not hypoxic Physical Exam 2 Physical Exam: PHYSICAL EXAMINATION Last 24h vital signs reviewed, see documentation in flowsheet General: comfortable appearing, no distress HEENT: Normocephalic, atraumatic, pupils round and equal, sclerae anicteric, no conjunctival injection, moist mucus membranes Lungs: Normal respiratory effort. slight distant crackles scattered throughout bases and mid singh bilaterally, no wheezing, clear anteriorly Heart: Regular rate and rhythm, no murmurs. I cannot see his neck veins no HJR Abdomen: Soft, nontender, nondistended. Bowel sounds present. Extremities: Warm, dry, well-perfused. No extremity edema. Neuro: Alert and oriented x 4, face symmetric, moves 4 extremities well Psych: Normal affect and behavior Results & Data Results & Data Vital Signs (Past 12 Hours) Vital Signs Temp Pulse Pulse Resp BP Pulse Ox O2 Del Method 04/03/24 07:46 Room Air 04/03/24 07:15 98.4 F 71 16 133/84 95 Room Air 04/03/24 03:42 97.3 F L 69 18 142/87 H 94 Room Air 04/02/24 23:12 98.2 F 71 18 148/75 H 96 Room Air 04/02/24 22:05 77 Laboratory Results 04/03/24 05:55 04/03/24 16:29 PG Care Time/CCT Total # of Minutes Spent Total Time Spent with Patient: Total time spent is greater than 50% in coordination of care (as documented) at patient's floor/unit and/or counseling patient: Coding Level of Care Code 07662 SUB INP/OBS CARE 2/35MIN Diagnoses Acute systolic CHF (congestive heart failure) I50.21 CAD (coronary artery disease), [place] coronary artery I25.10 HTN (hypertension) I10
[2024-04-03] MEDS: ENOXAPARIN INJ 40 MG/0.4 ML SYR SQ SCH (08:18)
[2024-04-03] MEDS: POTASSIUM CHLORIDE CRTAB 20 MEQ TABCR PO STA (08:43)
[2024-04-03] MEDS: FUROSEMIDE 40 MG/4 ML VIAL IV ONE (08:44)
[2024-04-03 10:54] VITALS: RESP 18
[2024-04-03 17:05] LABS: BUN Creatinine Ratio 18.3 (10-20); Calcium 8.5 mg/dl (8.6-10.3); Creatinine Clr Calc Pharmacy 69.2 ml/min; Magnesium 1.9 mg/dl (1.7-2.4); Potassium 4.4 mmol/L (3.5-5.1)
[2024-04-03] MEDS: FUROSEMIDE INJ 20 MG/2 ML VIAL IV ONE (18:38)
[2024-04-04 07:45] VITALS: O2SAT 95
[2024-04-04] MEDS: FUROSEMIDE 40 MG/4 ML VIAL IV ONE (10:16)
[2024-04-04 11:29] VITALS: PULSE 55; TEMP 97.9
[2024-04-04 12:50] VITALS: BP 142/90
--- NOTE | 2024-04-05 15:17 | Discharge Summary ---
Discharge Summary Date of Service April 05, 2024 Principal Dx & Hospital Course #1 = Principal Diagnosis (1) Acute systolic CHF (congestive heart failure): (2) CAD (coronary artery disease), [place] coronary artery: (3) HTN (hypertension): Plan 68-year-old man with chronic systolic heart failure presents with acute on chronic HFrEF. his primary director of medical staff services is Dr. Montgomery he does endorse a salt load about 5 days ago when he had a roasted chicken, noticed his weight going up by at least 3 pounds this week, since then progressive dyspnea, PND/orthopnea, became severe since yesterday. chest x-ray clear BNP almost 3000. no significant change in his EKG from previous and high-sensitivity troponin was 30 # acute on chronic HFpEF TTE 04/02 with EF 25-35% severely dilated LV with akinetic segments, grade 2 diastolic dysfunction, ok valves. unchanged from 11/30 per my conversation with the director of medical staff services He was not hypoxic but had significant DESOUZA and orthopnea, PND, crackles on lung exam. BNP 3000 which is double his previous Has had robust response to diuresis with IV lasix 40 bid. Note that he never had significant leg edema and seems to hold his water weight in his trunk. Despite no LE edema and unable to see neck veins, he tolerated substantial diuresis with resolution of dyspnea. Discharged with PRN lasix - he is to weight himself and measure waist circumference daily. Consider regular dosing perhaps every other day or 3x a week Already on carvedilol and entresto. Consideration of SGLT2 deferred to outpatient setting because of short duration of admission and difficult to assess volume status - hospital weights grossly inaccurate Arranged cardiology follow up with [facility]. Sees Dr. Montgomery Incidental findings needing follow up: 3. Incidental findings: An 18 mm hypodense hepatic lesion in segment V. Clinical correlation and triphasic CT scan are advised. 4. Left adrenal hypodense lesion measuring 2.2 cm with a mean density of -0.65HU, suggestive of an adrenal adenoma. I discussed these with him day of discharge - follow up with primary care Notes For Next Care Provider Needs further evaluation for incidental findings on chest CT -triphasic liver CT to evaluate hypodensity -left adrenal adenoma 2.2 cm Cardiology: Assess diuretic dosing Consider adding SGLT-2 Medication Changes From Visit added PRN lasix Admission HPI Per Admitting Provider This is a 68-year-old gentleman with past medical history of CHF, CAD, s/p stent placement in 2018 who presented to the emergency department on 04/02/2024 with a chief complaint of dyspnea. While in the emergency department patient was found to have a severely elevated BNP of 3000, negative chest x-ray. EKG was with ST depressions/T WI's in inferior lateral leads and lots of PVCs, widened QRS, and QTc of 480. Troponin 30. He was given 40 mg IV Lasix, 1 inch Nitropaste, his carvedilol and Entresto. The patient was seen and examined this morning. Patient reports that yesterday morning he started to develop shortness of breath. Over the course of yesterday and overnight he noticed that the shortness of breath was worsening. He denies any excessive coughing. He states that he does have a dry cough in the winterti me. He denies any chest pain. He denies nausea, vomiting, abdominal pain. Denies any lower extremity edema. Denies any urinary symptoms. Patient does report that after he was given IV Lasix and placed on oxygen he does feel much improved. Discharge Exam PHYSICAL EXAMINATION Last 24h vital signs reviewed, see documentation in flowsheet General: comfortable appearing, no distress HEENT: Normocephalic, atraumatic, pupils round and equal, sclerae anicteric, no conjunctival injection, moist mucus membranes Lungs: Normal respiratory effort. Clear bilaterally no rrw Heart: Regular rate and rhythm, no murmurs. neck veins not visible Abdomen: Soft, nontender, nondistended. Bowel sounds present. Extremities: Warm, dry, well-perfused. No extremity edema. Neuro: Alert and oriented x 4, face symmetric, moves 4 extremities well Psych: Normal affect and behavior Discharge Plan Discharge Items Patient Disposition: Home - Self-Care Reason For Visit: SOB Discharge Diagnosis: Acute on chronic systolic heart failure Activity: Resume your previous activity Non-emergency contact: Primary Care Provider and Settlement Worker Call non-emergency contact if: you have any medication questions and your symptoms worsen Follow-up/Referrals: Trevor Serrano DO [Primary Care Provider] - (Spoke with pt. He states that he is scheduled to see Dr. Serrano in 2 days. He states that Dr. Serrano will communicate with Dr. Montgomery. Patient does not want me to schedule.) Kyree Montgomery, DO [Physician] - (Spoke with pt. He states that he is scheduled to see Dr. Serrano in 2 days. He states that Dr. Serrano will communicate with Dr. Montgomery. Pt does not want me to schedule) Diet: Heart Healthy and Low Sodium (2gm) Addtl Attending Provider Instructions: You were hospitalized for heart failure exacerbation, probably from recent salt intake Your Echo was unchanged from November We treated you with IV lasix It seems you tend to carry fluid in your abdomen rather than leg/foot edema like most people Consider getting a bathroom scale and recommend trying to keep track of the girth of your lower abdomen with a tape measure. Continue with the lasix as needed, however, you may be at the point where you would do okay with a low dose of lasix - perhaps every other day or three times a week. Talk to Dr. Montgomery and Dr. Serrano about this. If you eat something salty, expect that you will need lasix for several days or a week. You can call your director of medical staff services's office for advice on diuretic dosing. The usual rule of thumb is to take more lasix if your weight goes up by 3 pounds or more in a day or two, or by 5 pounds or more in a week - that's water weight Keep going to the gym - awesome job on that! There were some incidental findings on the chest CT scan done in the ED - they are probably nothing to worry about but will need some follow up. Talk to Dr. Serrano about these: 3. Incidental findings: An 18 mm hypodense hepatic lesion in segment V. Clinical correlation and triphasic CT scan are advised. 4. Left adrenal hypodense lesion measuring 2.2 cm with a mean density of -0.65HU, suggestive of an adrenal adenoma. It was a pleasure taking care of you in the hospital, Dione Dixon MD Pending Studies at Discharge: No Stand-Alone Forms: My Crackle, Smoking Cessation Medications and DC Order Prescriptions: New furosemide 20 mg tablet 20 - 40 mg PO DAILY PRN (Reason: weight gain) Qty: 60 0RF Continued aspirin 81 mg Tablet,Delayed Release (Dr/Ec) 81 mg PO QAM Rx Instructions: Unable to verify OTC meds at this date/time. sacubitril-valsartan [Entresto] 49-51 mg Tablet 1 tab PO BID multivitamin Tablet 1 tab PO QAM Rx Instructions: Unable to verify OTC meds at this date/time. carvedilol 6.25 mg tablet 6.25 mg PO BID tramadol 50 mg tablet 50 mg PO Q8H PRN (Reason: Pain) pravastatin 20 mg tablet 20 mg PO HS calcium carbonate-vitamin D3 [Calcium 600 + D(3)] 600 mg-10 mcg (400 unit) Tablet 1 tab PO DAILY Rx Instructions: Unable to verify OTC meds at this date/time. coQ10 (ubiquinol) 100 mg Capsule 100 mg PO BID Rx Instructions: Unable to verify OTC meds at this date/time. Discharge Orders: Discharge Order- CHF (Routine); Ordered 04/04/24 Ordered By: Dione Dixon Admission Data Admit Date/Time: 04/02/24 09:37 Attending Provider: Dione Dixon Admit Provider: Dione Dixon Primary Care Provider: Trevor Serrano Other Interventions: Discharge Summary Assessment (RN) Last Done: 04/04/24 12:48 Hospital Stay Data Consultations 04/02/24 09:37 ED Decision to Admit Stat Diagnostic Imagining Performed 04/03/24 04:02 CT angio chest PE protocol Stat Pending Results Patient Have Any Pending Studies at Discharge: No Discharge Instructions Given to Patient (Per Discharging Provider) You were hospitalized for heart failure exacerbation, probably from recent salt intake Your Echo was unchanged from November We treated you with IV lasix It seems you tend to carry fluid in your abdomen rather than leg/foot edema like most people Consider getting a bathroom scale and recommend trying to keep track of the girth of your lower abdomen with a tape measure. Continue with the lasix as needed, however, you may be at the point where you would do okay with a low dose of lasix - perhaps every other day or three times a week. Talk to Dr. Montgomery and Dr. Serrano about this. If you eat something salty, expect that you will need lasix for several days or a week. You can call your director of medical staff services's office for advice on diuretic dosing. The usual rule of thumb is to take more lasix if your weight goes up by 3 pounds or more in a day or two, or by 5 pounds or more in a week - that's water weight Keep going to the gym - awesome job on that! There were some incidental findings on the chest CT scan done in the ED - they are probably nothing to worry about but will need some follow up. Talk to Dr. Serrano about these: 3. Incidental findings: An 18 mm hypodense hepatic lesion in segment V. Clinical correlation and triphasic CT scan are advised. 4. Left adrenal hypodense lesion measuring 2.2 cm with a mean density of -0.65HU, suggestive of an adrenal adenoma. It was a pleasure taking care of you in the hospital, Dione Dixon MD Total Time Total Time Spent Total Time Spent (In Minutes): I personally spent: 40 minutes today on clinical care activities including: reviewing chart notes and vital signs reviewing labs examining and counseling the patient communication with primary care discussion with care coordination writing prescriptions, discharge instructions documentation Coding Level of Care Code 65625 INP/OBS DISCH >30 MIN Diagnoses Acute systolic CHF (congestive heart failure) I50.21 CAD (coronary artery disease), [place] coronary artery I25.10 HTN (hypertension) I10
== END 2024-04-04 13:00 | disposition home or self-care (01) | DRG 291 ==
LOC: ED 06:02 → 2S 09:37 → SUATTDRO 09:37 → 2S 10:18
DX: R93.2 Abnormal findings on diagnostic imaging of liver and biliary tract; Z95.5 Presence of coronary angioplasty implant and graft; Z79.899 Other long term (current) drug therapy; Z79.82 Long term (current) use of aspirin; D35.00 Benign neoplasm of unspecified adrenal gland; I11.0 Hypertensive heart disease with heart failure; I50.23 Acute on chronic systolic (congestive) heart failure; I25.10 Atherosclerotic heart disease of native coronary artery without angina pectoris